=== PATIENT | male | born 1955 | race Caucasian/White ===

== ENCOUNTER → 2017-08-23 06:28 | Outpatient (CLI) | payer OTHER, SELFPAY ==
[2017-08-23 06:47] LABS: Absolute Lymphocyte Count 1.96 X10^3/ul (0.83-4.51); Absolute Neutrophil Count 9.6 X10^3/uL (2.0-7.7); Basophil# 0.05 X10^3/uL; Basophil% 0.4 % (0-1); Eosinophil# 0.54 X10^3/uL; Eosinophils% 4.1 % (0-5); Hematocrit 44.5 % (40-54); Hemoglobin 14.9 g/dl (13.0-16.5); Lymphocyte # 1.96 X10^3/ul (4.0); Mean Corp Hgb Conc 33.5 g/gl (32-36); Mean Corpuscular Hgb 28.3 pg (27.0-32.0); Mean Corpuscular Volume 84.6 fL (80-94); Mean Platelet Vol. 11.1 fl (6.2-12.0); Monocyte# 0.98 X10^3/uL; Monocyte% 7.5 % (0-10); Neutrophil # 9.55 X10^3/uL (2.7-7.7); Neutrophil % 72.8 % (47-70); Platelet Count 206 K/mm3 (150-450); RBC Distribution Width CV 14.6 % (11.6-14.6); RBC Distribution Width SD 44.9 fl (35.1-43.9); Red Blood Count 5.26 M/mm3 (4.6-6.2); White Blood Count 13.1 K/mm3 (4.4-11.0)
[2017-08-23 06:48] LABS: POSITIVE COUNT NO; POSITIVE DIFFERENTIAL NO; POSITIVE MORPHOLOGY NO
[2017-08-23 07:11] LABS: ALB/GLOB Ratio 0.8 RATIO (0.9-2.4); AST(SGOT) 16 U/L (15-37); Alanine Aminotransfer ALT/SGPT 33 U/L (16-61); Albumin, Serum 3.4 g/dL (3.2-5.0); Alkaline Phosphatase 162 U/L (45-117); Anion Gap 9 (5-15); BUN 16 mg/dL (7-18); BUN/Creat Ratio 19.7 RATIO (10-20); Calcium,Total 8.6 mg/dL (8.5-10.1); Chloride 107 mmol/L (98-107); Cholesterol 121 mg/dL (200); Creatinine, Serum 0.81 mg/dL (0.70-1.30); EST Glomerular Filtration Rate 103 mL/min (>60); Est Glom Filt Rate - Afr Amer 125 mL/min (>60); Glucose 98 mg/dL (74-106); High Density Lipoprotein 31 mg/dL; Potassium 3.2 mmol/L (3.5-5.1); Protein, Total 7.4 g/dL (6.4-8.2); Sodium Level 141 mmol/L (136-145); Thyroid Stim Hormone (TSH) 1.62 uIU/mL (0.358-3.74); Triglycerides 211 mg/dL; Very Low Density Lipoprotein 42 mg/dL (5-40)
[2017-08-24 16:34] LABS: Microalbumin,Random Urine < 5.0 mg/L (NO RANGE EST.)
== END ==
PROVIDERS: Family Provider Family Medicine; PCP Family Medicine; Visit Provider Family Medicine
DX: M79.89 Other specified soft tissue disorders (principal); I10 Essential (primary) hypertension
CPT/HCPCS: 80053; 80061; 82043; 82570; 84443; 85025

== ENCOUNTER → 2018-08-12 09:59 | Outpatient (CLI) | payer OTHER, SELFPAY ==
[2018-08-12 09:06] VITALS: BMI 31.8
[2018-08-12 11:06] LABS: Anion Gap 6 (5-15); BUN 14 mg/dL (7-18); BUN/Creat Ratio 17.2 RATIO (10-20); Calcium,Total 8.9 mg/dL (8.5-10.1); Chloride 110 mmol/L (98-107); Creatinine, Serum 0.82 mg/dL (0.70-1.30); EST Glomerular Filtration Rate 102 mL/min (>60); Est Glom Filt Rate - Afr Amer 124 mL/min (>60); Glucose 102 mg/dL (74-106); Potassium 3.8 mmol/L (3.5-5.1); Sodium Level 143 mmol/L (136-145)
== END ==
PROVIDERS: Family Provider Family Medicine; PCP Family Medicine; Referring Provider Nurse Practitioner Family; Visit Provider Nurse Practitioner Family
DX: R07.9 Chest pain, unspecified (principal); I25.10 Atherosclerotic heart disease of native coronary artery without angina pectoris; I10 Essential (primary) hypertension; E78.00 Pure hypercholesterolemia, unspecified; R00.2 Palpitations; Z95.1 Presence of aortocoronary bypass graft
CPT/HCPCS: 36415; 80048; 93225; 93226

== ENCOUNTER → 2019-02-04 16:33 | Outpatient (CLI) | payer OTHER, SELFPAY ==
[2018-08-12 09:06] VITALS: BMI 31.8
[2019-02-04 17:37] LABS: Absolute Lymphocyte Count 2.15 X10^3/uL (0.83-4.51); Absolute Neutrophil Count 9.8 X10^3/uL (2.0-7.7); Basophil# 0.05 X10^3/uL; Basophil% 0.4 % (0-1); Eosinophil# 0.29 X10^3/uL; Eosinophils% 2.2 % (0-5); Hematocrit 45.2 % (40-54); Hemoglobin 14.3 g/dL (13.0-16.5); Lymphocyte # 2.15 X10^3/ul (4.0); Lymphocyte % 16.2 % (19-41); Mean Corp Hgb Conc 31.6 g/dL (32-36); Mean Corpuscular Hgb 27.2 pg (27.0-32.0); Mean Corpuscular Volume 86.1 fL (80-94); Mean Platelet Vol. 11.5 fl (6.2-12.0); Monocyte# 0.88 X10^3/uL; Monocyte% 6.6 % (0-10); NRBC Flagged by Analyzer 0 % (0-5); Neutrophil # 9.82 X10^3/uL (2.7-7.7); Neutrophil % 74.2 % (47-70); Platelet Count 215 K/mm3 (150-450); RBC Distribution Width CV 14.6 % (11.6-14.6); Red Blood Count 5.25 M/mm3 (4.6-6.2); White Blood Count 13.2 K/mm3 (4.4-11.0)
[2019-02-04 18:03] LABS: Anion Gap 5 (5-15); BUN 23 mg/dL (7-18); BUN/Creat Ratio 24.4 RATIO (10-20); Chloride 112 mmol/L (98-107); Cholesterol 140 mg/dL (200); Creatinine, Serum 0.94 mg/dL (0.70-1.30); EST Glomerular Filtration Rate 86 mL/min (>60); Est Glom Filt Rate - Afr Amer 104 mL/min (>60); Glucose 87 mg/dL (74-106); High Density Lipoprotein 31 mg/dL; Sodium Level 144 mmol/L (136-145)
== END ==
PROVIDERS: Family Provider Family Medicine; PCP Family Medicine; Referring Provider Family Medicine; Visit Provider Family Medicine
DX: I10 Essential (primary) hypertension (principal); I89.0 Lymphedema, not elsewhere classified; I25.10 Atherosclerotic heart disease of native coronary artery without angina pectoris
CPT/HCPCS: 36415; 80048; 82465; 83718; 85025

== ENCOUNTER 2019-02-15 16:13 | Outpatient (RCR) | payer OTHER, SELFPAY ==
[2018-08-12 09:06] VITALS: BMI 31.8
--- NOTE | 2019-04-14 12:36 | HP.OTEVAL_ITS ---
Patient's Visit Information MAIRA BAGLEY is a 63 year old M, referred to Occupational Therapy by Kenton Weathers MD, with a diagnosis of edema LE. Date of Evaluation: 02/15/19 Occupational Therapist: Aylin Lopez, DANIELA/Taty, CHT - Subjective Subjective: This 63 year old male was seen for OT eval with dx of LE lymphedema- pt states he has had swelling in his left LE for about three years. Pt states the swelling goes down when he is sleeping, most swelling is at night after working. pt states he has tried to use compression socks but doesn't use them very frequently. pt would like to know what he can do to improve his legs. - Lymphedema (Circumferential Measure) Mid-foot: right 27cm left 28cm Ankle: right 29cm left 30 cm Lower calf: right 30cm left 32 cm Largest calf: right 39cm left 39cm Below knee: right 40cm left 40 cm - Lower Limb Functional Index Lower Extremity Functional Score: 72 - Goals Demonstrate a 20% reduction in edema by d/c: Yes Demonstrate adequate knowledge skin care/prec by 2nd week: Yes Demonstrate adequate knowledge therapeutic exercises by d/c: Yes Select approp compression garment w/donning/care/wear by d/c: Yes Voice need to replace compression garment every 4-6mo by dc: Yes - Rehabilitation General Assessment: PT demo with left LE edmea- pt demo need for skilled OT services to ed. pt on mtg of LE lymphedmea (edema) Today pt was ed. on lymphedema, beneficial ex, skin care and precaustions. Pt aslo ed. on use of compressions socks 15-20mmHg. pt ed. on sizing and different textures of compression socks. pt demo understanding and due to deductable will cont. with home mtg and call if he has questions with compression, edema or skin care. pt agree to poc Rehabilitation Potential: Good - Anticipated Interventions Anticipated Interventions: Education re Diagnosis, Education re Life-long lymphedema Management, Education re Skin Care and Precautions, Education re Self Massage Techniques, Education re Correct Donning Tech,Care&Wearing Sched Comp Garments, Home Program - Visit Plan TEXT: Thank you for the opportunity to evaluate your patient. For Medicare and Medicare HMO plans, please review the plan of care and approve it. It will need to be FAXED BACK to us at [phone] for Medicare purposes. Please let me know if there are questions or concerns regarding this plan of care. Physician Signature: Date:
--- NOTE | 2019-05-12 18:46 | HP.OT.NRP ---
HP - Discharge Summary - Patient Information MAIRA BAGLEY was seen in my office for initial evaluation on 02/15/19. The following Plan of Care was established for this patient: - Anticipated Interventions Anticipated Interventions: Education re Diagnosis, Education re Life-long lymphedema Management, Education re Skin Care and Precautions, Education re Self Massage Techniques, Education re Correct Donning Tech,Care&Wearing Sched Comp Garments, Home Program This patient was last seen in our office 02/15/19. Pertinent comments regarding their Occupational therapy will appear below: PT was seen for OT eval and has not scheduled further apts. Due to time lapse in care pt d/c at this time. At this point I will be discontinuing this patient from occupational therapy. I would be happy to see this patient again in the future if found appropriate by the physician. Thank you! Aylin Lopez, OTR/L, CHT
== END 2019-02-15 19:00 | disposition home or self-care (01) ==
LOC: OT 16:13
PROVIDERS: Family Provider Family Medicine; PCP Family Medicine; Referring Provider Family Medicine; Visit Provider Family Medicine
DX: I89.0 Lymphedema, not elsewhere classified (principal); M79.89 Other specified soft tissue disorders
CPT/HCPCS: 97166; 97530

== ENCOUNTER → 2019-03-16 15:51 | Outpatient (CLI) | payer OTHER, SELFPAY ==
[2018-08-12 09:06] VITALS: BMI 31.8
[2019-03-21 11:29] LABS: H. PYLORI STOOL AG Negative (Negative)
== END ==
PROVIDERS: Family Provider Family Medicine; PCP Family Medicine; Referring Provider Family Medicine; Visit Provider Family Medicine
DX: Z20.09 Contact with and (suspected) exposure to other intestinal infectious diseases (principal)

== ENCOUNTER 2020-12-12 09:17 | Inpatient (IN) | payer OTHER, SELFPAY ==
[2019-08-12 10:13] VITALS: BMI 32.3
[2020-12-12] VITALS (12 sets, daily range): BP systolic 125–163; BP diastolic 80–92; PULSE 77–99; RESP 14–35; TEMP 36.6–37.2; O2SAT 88–94; BMI 29.1; BMI 30.3
--- NOTE | 2020-12-12 09:25 | EKG12_ITS ---
Test Reason : SOB Blood Pressure : / mmHG Vent. Rate : 092 BPM Atrial Rate : 092 BPM P-R Int : 156 ms QRS Dur : 104 ms QT Int : 360 ms P-R-T Axes : 004 -44 -05 degrees QTc Int : 445 ms Normal sinus rhythm Possible Left atrial enlargement Left axis deviation Possible Pulmonary disease pattern Left ventricular hypertrophy Abnormal ECG Confirmed by MAGALY SCHULTZ, SKYLAR ([id number]), sports editor NOLVIA STOKES ([id number]) on 12/14/2020 12:33:33 PM Referred By: ESCOBAR/ZHANG Confirmed By:SKYLAR MCKENZIE MD
--- NOTE | 2020-12-12 09:25 | CT_ITS ---
STUDY: CTA CHEST REASON FOR EXAM: Male, 65 years old. hypoxia RADIATION DOSAGE (If Supplied By Facility): CTDIvol = ( 14.85 ) mGy, DLP = ( 436.16 ) mGycm TECHNIQUE: The examination was performed with the intravenous administration of IV 100mL Isovue-370. Post-processing of the angiographic images was performed, with multiplanar reformation and 3D reconstruction. Individualized dose optimization techniques were used for this CT. COMPARISON: None. FINDINGS: Patchy groundglass appearance seen involving both lung maza consistent with Covid 19. For follow-up. Normal enhancement of the main pulmonary artery and right and left pulmonary arteries. Normal enhancement of the bilateral peripheral pulmonary arteries. There is no demonstrated pulmonary embolism. Normal thoracic aorta and visualized great vessels. There is no demonstrated aortic dissection. Normal heart and pericardium. Normal mediastinum. Normal hilar regions. Normal visualized trachea and bronchi. No evidence of pneumothorax or pleural effusion seen. Normal chest wall structures. Increased. Thoracic kyphosis Normal visualized upper abdomen. CT/CTA Chest W/WO Contrast IMPRESSION: Diffuse groundglass pattern involving both lung maza consistent with known COVID-19 status. No evidence of pulmonary emboli. Electronically Signed: Ashleykristel Helen, at 12:26 EDT Tel , Service support ,
--- NOTE | 2020-12-12 09:26 | EDS_ITS ---
HPI History of Present Illness Chief Complaint: Shortness of Breath Informant: patient Onset/Context/Timing Onset: Days Context: gradual Timing: Continuous Quality: Positive for Dyspnea on exertion and Wheezing Current Severity: Moderate Maximum Severity: Severe Worsened by: Exertion Narrative Narrative: The patient is a 55-year-old male with medical history significant for coronary vascular disease status post CABG, hypertension, hypercholeste rolemia, who presents to the emergency department shortness of breath, fatigue, malaise. Patient was diagnosed Covid positive on the of this month. He states he was started on azithromycin. He states that he feels like he cannot catch his breath and has been generally weak. He denies chest pain. He does admit to intermittent fevers. He states he cannot walk a distance without getting very dyspneic. He states he is also had a difficult time staying hydrated and eating. He denies abdominal pain. He denies any other history of immunosuppression. [facility] Medical History Abnormal CT scan, chest Abnormal stress test Atherosclerotic heart disease of [place] coronary artery without angina pectoris Chest pain Edema Essential hypertension History of echocardiogram Hypertriglyceridemia Other [facility] (current) drug therapy Pure hypercholesterolemia Right inguinal hernia Screen for colon cancer Home Medications amlodipine 10 mg tablet 10 mg PO DAILY #30 tab 08/12/19 [Rx Last Taken Unknown] aspirin 81 mg tablet,delayed release 81 mg PO DAILY #30 tab 08/12/19 [Rx Last Taken Unknown] atorvastatin 40 mg tablet 40 mg PO DAILY #30 tab 08/12/19 [Rx Last Taken Unknown] metoprolol succinate 25 mg tablet,extended release 24 hr 25 mg PO QDAY #30 tab 08/12/19 [Rx Last Taken Unknown] quinapril 10 mg tablet 10 mg PO DAILY #30 tab 08/12/19 [Rx Last Taken Unknown] Allergy/AdvReac Type Severity Reaction Status Date / Time No Known Allergies Allergy Verified 08/12/19 10:13 Family History Mother Lymphoma Father Leukemia Surgical History History of cholecystectomy History of left heart catheterization (LHC) History of right inguinal hernia repair Hx of CABG (~06/04/16) Social History Smoking Status: Never smoker alcohol intake: never substance use type: does not use caffeine: Yes Type: carbonated beverages and tea what type of physical activity do you participate in: none seatbelt use: always do you feel safe at home: Yes ROS ROS ED Constitutional Constitutional ED: Reports chills and fever(s) Eyes Eyes: Denies blurry vision or change in vision ENT ENT ED: Denies ear pain or sore throat Cardiovascular Cardiovascular: Denies chest pain or palpitations Respiratory/Chest Respiratory/Chest: Reports cough, dyspnea and dyspnea on exertion Gastrointestinal Gastrointestinal: Reports nausea Genitourinary Genitourinary ED: Denies dysuria or urinary frequency Musculoskeletal Musculoskeletal: Reports arthralgias Integumentary Denies rash Neurologic Neurologic: Denies headache(s) or paresthesias Psychiatric Psychiatric: Denies anxiety or depression Endocrine Endocrinology: Denies polydipsia or polyuria Allergic/Immunologic Allergic/Immunologic ED: Denies urticaria EXAM Physical Exam Const Vital Signs: 12/12/20 09:18 12/12/20 11:17 Temperature 98.9 F Temperature Source Temporal Pulse Rate 99 87 Respiratory Rate 14 20 H Blood Pressure 142/81 H 163/92 H Blood Pressure Mean 101 115 Pulse Ox 91 89 Oxygen Delivery Method Room Air Nasal Cannula Oxygen Flow Rate (L/min) 4 Positive well nourished and well developed General Appearance ED: well developed HEENT Reports normocephalic, head/scalp atraumatic and moist mucous membranes Eyes PERRL and EOMs intact bilaterally Neck no lymphadenopathy and supple General: Negative for tenderness Chest Wall inspection of chest normal Resp normal respiratory effort Auscultation: diminished lung sounds Cardio regular rate, regular rhythm and no murmurs GI normal to inspection, nondistended, normoactive bowel sounds Palpation: Negative for tender, guarding or rebound tenderness present Back/Spine no CVA tenderness Cervical Spine: Negative for cervical spine tenderness Thoracic Spine / Upper Back: Negative for thoracic spinal tenderness Extremity normal to inspection General Extremety ED: Negative for tenderness Neuro oriented x3 and CN's II-XII intact bilaterally Neuro Narrative: No focal deficits appreciated. Sensorium / Orientation: alert Psych mental status grossly normal Skin no rashes or lesions noted, no wounds and skin turgor normal MDM MDM MDM Narrative Medical decision making narrative: The patient is a 65-year-old male who presents Covid positive with increasing shortness of breath. The patient does have resting tachypnea. He had conversational dyspnea. He had to be transitioned to 4 L of nasal cannula to keep saturations in the mid 90s. EKG was obtained. EKG demonstrates sinus rhythm without evidence of acute ischemia. With the patient's hypoxia, I did obtain CTA. The read is pending, but I do not see evidence of saddle embolism. There is rather significant inflammatory change consistent with Covid. Patient was treated with IV Decadron. Labs were reviewed. Given his hypoxic respiratory failure, the patient will be admitted at this time. He was discussed with the hospitalist. Impression 1. COVID-19 2. Hypoxia requiring supplemental oxygen 3. Hypokalemia Lab Data Attestation: I reviewed the patient's lab results. Labs: Laboratory Results - last 24 hr 12/12/20 12/12/20 12/12/20 09:55 09:55 09:55 WBC 12.6 H RBC 5.76 Hgb 15.4 Hct 47.9 MCV 83.2 MCH 26.7 L MCHC 32.2 RDW Std Deviation 45.4 H RDW Coeff of Hugo 15.0 H Plt Count 156 MPV 11.3 Immature Gran % (Auto) 0.600 Neut % (Auto) 89.9 H Lymph % (Auto) 4.4 L Crawford % (Auto) 4.9 Eos % (Auto) 0.0 Baso % (Auto) 0.2 Absolute Neuts (auto) 11.3 H Absolute Lymphs (auto) 0.55 L Nucleated RBC % 0 Differential Comment COMMENT Sodium 140 Potassium 3.2 L Chloride 105 Carbon Dioxide 25.0 Anion Gap 10 BUN 15 Creatinine 0.88 Estim Creat Clear Calc 74.74 Est GFR (MDRD) Af Amer 112 Est GFR (MDRD) Non-Af 93 BUN/Creatinine Ratio 17.0 Glucose 114 H Lactic Acid Calcium 8.7 Total Bilirubin 1.00 AST 61 H ALT 57 Alkaline Phosphatase 108 Total Protein 7.0 Albumin 2.4 L Globulin 4.6 H Albumin/Globulin Ratio 0.5 L Procalcitonin 0.19 H 12/12/20 10:04 WBC RBC Hgb Hct MCV MCH MCHC RDW Std Deviation RDW Coeff of Hugo Plt Count MPV Immature Gran % (Auto) Neut % (Auto) Lymph % (Auto) Crawford % (Auto) Eos % (Auto) Baso % (Auto) Absolute Neuts (auto) Absolute Lymphs (auto) Nucleated RBC % Differential Comment Sodium Potassium Chloride Carbon Dioxide Anion Gap BUN Creatinine Estim Creat Clear Calc Est GFR (MDRD) Af Amer Est GFR (MDRD) Non-Af BUN/Creatinine Ratio Glucose Lactic Acid 1.8 Calcium Total Bilirubin AST ALT Alkaline Phosphatase Total Protein Albumin Globulin Albumin/Globulin Ratio Procalcitonin Radiography Chest X-Ray - ED: 1 View, Read by ED Physician, Normal, Heart, Bony Structures, Right Infiltrate and Left Infiltrate Discharge Plan Triage Chief Complaint: Shortness of Breath ED Provider: Tom Garcia Dx/Rx/DC Orders Prescriptions: No Action metoprolol succinate 25 mg tablet extended release 24 hr 25 mg PO QDAY Qty: 30 RF: 12 quinapril 10 mg tablet 10 mg PO DAILY Qty: 30 RF: 12 atorvastatin 40 mg tablet 40 mg PO DAILY Qty: 30 RF: 12 amlodipine 10 mg tablet 10 mg PO DAILY Qty: 30 RF: 12 aspirin 81 mg tablet,delayed release (DR/EC) 81 mg PO DAILY Qty: 30 RF: 12 Primary Care Provider: Kenton Weathers
[2020-12-12 10:22] LABS: Absolute Lymphocyte Count 0.55 X10^3/uL (0.83-4.51); Absolute Neutrophil Count 11.3 X10^3/uL (2.0-7.7); Basophil# 0.02 X10^3/uL; Basophil% 0.2 % (0-1); Hematocrit 47.9 % (40-54); Hemoglobin 15.4 g/dL (13.0-16.5); Lymphocyte # 0.55 X10^3/ul (0.83-4.51); Lymphocyte % 4.4 % (19-41); Mean Corp Hgb Conc 32.2 g/dL (32-36); Mean Corpuscular Hgb 26.7 pg (27.0-32.0); Mean Corpuscular Volume 83.2 fL (80-94); Mean Platelet Vol. 11.3 fl (6.2-12.0); Monocyte# 0.62 X10^3/uL; Monocyte% 4.9 % (0-10); NRBC Flagged by Analyzer 0 % (0-5); Neutrophil # 11.31 X10^3/uL (2.7-7.7); Neutrophil % 89.9 % (47-70); POSITIVE DIFFERENTIAL YES; Platelet Count 156 K/mm3 (150-450); RBC Distribution Width SD 45.4 fl (35.1-43.9); Red Blood Count 5.76 M/mm3 (4.6-6.2); White Blood Count 12.6 K/mm3 (4.4-11.0)
[2020-12-12 10:24] LABS: Differential Indicated SCAN CRITERIA MET
[2020-12-12 10:37] LABS: ALB/GLOB Ratio 0.5 RATIO (0.9-2.4); AST(SGOT) 61 U/L (15-37); Alanine Aminotransfer ALT/SGPT 57 U/L (16-61); Albumin, Serum 2.4 g/dL (3.2-5.0); Alkaline Phosphatase 108 U/L (45-117); Anion Gap 10 (5-15); BUN 15 mg/dL (7-18); Calcium,Total 8.7 mg/dL (8.5-10.1); Chloride 105 mmol/L (98-107); Creatinine, Serum 0.88 mg/dL (0.70-1.30); EST Glomerular Filtration Rate 93 mL/min (>60); Est Glom Filt Rate - Afr Amer 112 mL/min (>60); Estimated Creatinine Clearance 74.74 ml/min; Globulin 4.6 g/dL (2.2-4.2); Glucose 114 mg/dL (74-106); Potassium 3.2 mmol/L (3.5-5.1); Sodium Level 140 mmol/L (136-145)
[2020-12-12 10:45] LABS: Lactic Acid 1.8 mmol/L (0.4-1.9)
[2020-12-12 10:51] LABS: Procalcitonin 0.19 ng/mL (0.00-0.09)
--- NOTE | 2020-12-12 11:02 | ED.RN ---
pt 85 percent on room air. placed on [address] jack
[2020-12-12] MEDS: Acetaminophen 500 MG Tablet 1000 MG PO (11:16)
[2020-12-12] MEDS: dexAMETHasone 4 MG/ML Vial 6 MG IV (11:16)
[2020-12-12] MEDS: 0.9% Normal Saline 1,000 ML 125 ML IV (11:16)
--- NOTE | 2020-12-12 11:31 | NURSING ---
DR SIERRA TOBAR
--- NOTE | 2020-12-12 11:37 | NURSING ---
MS2 COVID DR SIERRA CASILLAS, HYPOXIA
--- NOTE | 2020-12-12 11:55 | HP.PCM.HOS_ITS ---
HPI - General HPI Narrative MAIRA ELAM, is a 65 M who presented with a chief complaint of shortness of breath. Mr. Elam tested positive for Covid on 03 December and since then has been experiencing shortness of breath, fatigue, malaise, change in taste and smell, and intermittent mild dry cough. He has a history of coronary disease but no history of immunosuppression. He reports that he is unable to walk very far without getting significantly dyspneic. He denies chest pain, hemoptysis, diarrhea, or nausea and vomiting. He indicates he has had known exposure to coronavirus and has not had his vaccine. Upon arrival to the emergency department his sats were 91% on room air and he is significantly declined since his presentation and is now on 5 L nasal cannula with an SPO2 of 93%. He is tachypneic but his blood pressure is stable and he has no fever. He has a mildly elevated white count but his CBC is otherwise normal. His CMP shows mild hypokalemia, normal renal function, mild AST elevation at 61, and his procalcit onin was 0.19. An EKG was performed and shows poor R wave progression but no acute ST-T wave changes. A CTA was performed and the read is pending on admission but upon my review shows patchy bilateral diffuse groundglass infiltrates. He was treated with IV fluids and Decadron in the emergency dep artment will be admitted to PCU. [facility] Medical History (Updated 12/12/20 @ 12:[address] Angela Ac, ) Abnormal CT scan, chest Abnormal stress test Atherosclerotic heart disease of [place] coronary artery without angina pectoris Chest pain Edema Essential hypertension History of echocardiogram Hypertriglyceridemia Other correction (current) drug therapy Pure hypercholesterolemia Right inguinal hernia Screen for colon cancer Home Medications amlodipine 10 mg tablet 10 mg PO DAILY #30 tab 08/12/19 [Rx Last Taken Unknown] aspirin 81 mg tablet,delayed release 81 mg PO DAILY #30 tab 08/12/19 [Rx Last Taken Unknown] atorvastatin 40 mg tablet 40 mg PO DAILY #30 tab 08/12/19 [Rx Last Taken Unk nown] metoprolol succinate 25 mg tablet,extended release 24 hr 25 mg PO QDAY #30 tab 08/12/19 [Rx Last Taken Unknown] quinapril 10 mg tablet 10 mg PO DAILY #30 tab 08/12/19 [Rx Last Taken Unknown] Allergy/AdvReac Type Severity Reaction Status Date / Time No Known Allergies Allergy Verified 08/12/19 10:13 Family History Mother Lymphoma Father Leukemia Surgical History History of cholecystectomy History of left heart catheterization (LHC) History of right inguinal hernia repair Hx of CABG (~06/04/16) Social History Smoking Status: Never smoker alcohol intake: never substance use type: does not use caffeine: Yes Type: carbonated beverages and tea what type of physical activity do you participate in: none seatbelt use: always do you feel safe at home: Yes ROS Review of Systems ROS Unobtainable: Denies due to encephalopathy, due to endotracheal tube, due to mental condition, due to mental status or other Constitutional Constitutional: Reports anorexia, chills, fatigue, fever(s), malaise and weakness; Denies change in weight or night sweats Eyes Eyes: Denies blurry vision, change in eye color, change in vision, discharge from eye(s), double vision, erythema, eye pain, loss of vision or other ENT HEENT: Denies abnormal hearing, dysphagia, ear pain, epistaxis, headache(s), hearing loss, nasal congestion, nasal discharge, post nasal drip, sinus pressure, sore throat or other Cardiovascular Cardiovascular: Denies chest pain, claudication, dyspnea on exertion, edema, lightheadedness, orthopnea, palpitations, paroxysmal nocturnal dyspnea, rapid heart rate, syncope or other Respiratory/Chest Respiratory/Chest: Reports cough, dyspnea, shortness of breath at rest and shortness of breath with exertion; Denies excessive phlegm production, hemoptysis, productive cough, wheezing or other Gastrointestinal Gastrointestinal: Denies abdominal pain, coffee ground emesis, constipation, diarrhea, dyspepsia, hematemesis, hematochezia, loose stools, melena, nausea, vomiting or other Genitourinary Genitourinary: Denies burning urination, difficulty urinating, dysuria, hematuria, nocturia, urinary frequency, urinary hesitancy, urinary incontinence, urinary urgency or other Musculoskeletal Musculoskeletal: Reports myalgias; Denies arthralgias, back pain, joint pain, joint stiffness, joint swelling, neck pain or other Neurologic Neurologic: Denies abnormal gait, abnormal speech, confusion, disequilibrium, dizziness, focal weakness, headache(s), numbness, paresthesias, seizure-like activity, seizures, syncope, tingling, tremor(s) or other Psychiatric Psychiatric: Denies anxiety, depression, homicidal ideation, suicidal ideation or other Endocrine Endocrinology: Denies change in body appearance, cold intolerance, excessive sweating, heat intolerance, polydipsia, polyuria or other Hematologic/Lymphatic Hematologic/Lymphatic: Denies anemia, easy bleeding, easy bruising, lymphadenopathy or other Allergic/Immunologic Allergic/Immunologic: Denies rhinitis, hives, eczemia, asthma or other Vital Signs Vital Signs Vital Signs: 12/12/20 09:18 12/12/20 11:17 Temperature 98.9 F Temperature Source Temporal Pulse Rate 99 87 Respiratory Rate 14 20 H Blood Pressure 142/81 H 163/92 H Blood Pressure Mean 101 115 Pulse Ox 91 89 Oxygen Delivery Method Room Air Nasal Cannula Oxygen Flow Rate (L/min) 4 Weight Weight: 79.379 kg Body Mass Index (BMI) 29.1 Physical Exam Const alert and oriented x3 Constitutional Narrative: Overweight middle-aged white male lying scrunched down in bed, appears as if he does not feel well, but nontoxic HEENT normocephalic HEENT Narrative: Good dentition, no thrush, Mallampati 2 Mouth: moist mucous membranes abnormal parched Eyes PERRL, EOMs intact bilaterally and conjunctivae normal Neck no lymphadenopathy, supple, no JVD and no carotid bruits Resp No normal respiratory effort, No no retractions, No no use of accessory muscles and No clear to auscultation bilaterally Resp Narrative: Diminished but clear, tachypnea but no accessory muscle use Auscultation: Negative for crackles, rales, rhonchi or wheezes Cardio regular rate, regular rhythm, S1 normal heart sound, S2 normal heart sound, no murmurs, no rub, no gallops, no clicks and no JVD GI normal to inspection, nondistended, normoactive bowel sounds, soft to palpation, non-tender and non-distended Extremity normal to inspection, full ROM and no clubbing, cyanosis or edema Peripheral Pulses: Yes pulses 2+ throughout Skin no rashes or lesions noted, no wounds, skin turgor normal, no jaundice, no petechiae and no mottling Neuro oriented x3, CN's II-XII intact bilaterally, moves all extremities and no focal motor deficits Neuro Narrative: Generalized weakness but no focal deficit Sensorium / Orientation: awake, alert, oriented to person, oriented to place and oriented to time Speech: speech normal Psych affect normal Results Lab / Micro Data Attestation: I reviewed the patient's lab results. Result Diagrams: 12/12/20 09:55 12/12/20 09:55 Labs: Laboratory Results - last 24 hr 12/12/20 12/12/20 12/12/20 09:55 09:55 09:55 WBC 12.6 H RBC 5.76 Hgb 15.4 Hct 47.9 MCV 83.2 MCH 26.7 L MCHC 32.2 RDW Std Deviation 45.4 H RDW Coeff of Hugo 15.0 H Plt Count 156 MPV 11.3 Immature Gran % (Auto) 0.600 Neut % (Auto) 89.9 H Lymph % (Auto) 4.4 L Dukes % (Auto) 4.9 Eos % (Auto) 0.0 Baso % (Auto) 0.2 Absolute Neuts (auto) 11.3 H Absolute Lymphs (auto) 0.55 L Nucleated RBC % 0 Differential Comment COMMENT Sodium 140 Potassium 3.2 L Chloride 105 Carbon Dioxide 25.0 Anion Gap 10 BUN 15 Creatinine 0.88 Estim Creat Clear Calc 74.74 Est GFR (MDRD) Af Amer 112 Est GFR (MDRD) Non-Af 93 BUN/Creatinine Ratio 17.0 Glucose 114 H Lactic Acid Calcium 8.7 Total Bilirubin 1.00 AST 61 H ALT 57 Alkaline Phosphatase 108 Total Protein 7.0 Albumin 2.4 L Globulin 4.6 H Albumin/Globulin Ratio 0.5 L Procalcitonin 0.19 H 12/12/20 10:04 WBC RBC Hgb Hct MCV MCH MCHC RDW Std Deviation RDW Coeff of Hugo Plt Count MPV Immature Gran % (Auto) Neut % (Auto) Lymph % (Auto) Dukes % (Auto) Eos % (Auto) Baso % (Auto) Absolute Neuts (auto) Absolute Lymphs (auto) Nucleated RBC % Differential Comment Sodium Potassium Chloride Carbon Dioxide Anion Gap BUN Creatinine Estim Creat Clear Calc Est GFR (MDRD) Af Amer Est GFR (MDRD) Non-Af BUN/Creatinine Ratio Glucose Lactic Acid 1.8 Calcium Total Bilirubin AST ALT Alkaline Phosphatase Total Protein Albumin Globulin Albumin/Globulin Ratio Procalcitonin Assessment & Plan Assessment/Plan (1) Acute respiratory failure with hypoxia: (2) Pneumonia due to COVID-19 virus: (3) Hypokalemia: (4) Atherosclerotic heart disease of [place] coronary artery without angina pectoris: QUALIFIERS: [place] vs. transplanted heart: [place] heart Qualified Code(s): I25.10 - Atherosclerotic heart disease of [place] coronary artery without angina pectoris (5) Hypertriglyceridemia: (6) Essential hypertension: (7) Pure hypercholesterolemia: PLAN: Acute hypoxic respiratory failure secondary to COVID-19 pneumonia -Positive test on 12/03/2020 with known exposure--> day nine since symptoms started -Unvaccinated -Decadron day of 10 -Remdesivir day 1 of 5 -CTA shows patchy groundglass infiltrates bilaterally and diffusely -No pulmonary embolism identified -Serial labs -We will start with Lovenox 40 mg twice daily for now -Supportive care -Wean oxygen as able--> currently requiring 6 L nasal cannula -Suspect patient may further decompensate and require airVo versus noninvasive ventilation versus intubation -Hold on pulmonary consult for now but if decompensates will consult COVID-19 pneumonia -See above Hypokalemia -40 mEq p.o. potassium -Repeat in a.m. -Check a.m. magnesium level CAD/HTN/HPL -Continue home amlodipine 10 mg daily Continue aspirin 81 mg daily Continue atorvastatin 40 mg daily Continue metoprolol 25 mg daily Continue quinapril 10 mg daily DVT prophylaxis 40 mg Lovenox twice daily -SCDs CODE STATUS -Full code Charges/Coding Visit Charges Inpatient E&M: 18137 Init Hosp L3
--- NOTE | 2020-12-12 12:01 | NURSING ---
DR ESQUIVEL IN ROOM
[2020-12-12] MEDS: Lactated Ringers 1,000 ML 75 ML IV (14:53)
[2020-12-12] MEDS: Enoxaparin 40 MG/0.4 ML Syringe SC (19:55)
[2020-12-13] VITALS (14 sets, daily range): BP systolic 123–135; BP diastolic 80–89; PULSE 63–86; RESP 13–31; TEMP 36.4–36.9; O2SAT 90–99
[2020-12-13] MEDS: Lactated Ringers 1,000 ML 75 ML IV (04:50)
[2020-12-13 05:07] LABS: Absolute Lymphocyte Count 0.73 X10^3/uL (0.83-4.51); Absolute Neutrophil Count 9.2 X10^3/uL (2.0-7.7); Basophil# 0.02 X10^3/uL; Basophil% 0.2 % (0-1); Hematocrit 46.3 % (40-54); Hemoglobin 14.9 g/dL (13.0-16.5); Lymphocyte # 0.73 X10^3/ul (0.83-4.51); Mean Corp Hgb Conc 32.2 g/dL (32-36); Mean Corpuscular Hgb 26.8 pg (27.0-32.0); Mean Corpuscular Volume 83.1 fL (80-94); Mean Platelet Vol. 11.2 fl (6.2-12.0); Monocyte# 0.54 X10^3/uL; Monocyte% 5.1 % (0-10); NRBC Flagged by Analyzer 0 % (0-5); Neutrophil # 9.15 X10^3/uL (2.7-7.7); Neutrophil % 87.2 % (47-70); Platelet Count 197 K/mm3 (150-450); RBC Distribution Width CV 14.8 % (11.6-14.6); RBC Distribution Width SD 44.8 fl (35.1-43.9); Red Blood Count 5.57 M/mm3 (4.6-6.2); White Blood Count 10.5 K/mm3 (4.4-11.0)
[2020-12-13 05:38] LABS: ALB/GLOB Ratio 0.6 RATIO (0.9-2.4); AST(SGOT) 51 U/L (15-37); Alanine Aminotransfer ALT/SGPT 47 U/L (16-61); Albumin, Serum 2.1 g/dL (3.2-5.0); Alkaline Phosphatase 98 U/L (45-117); Anion Gap 9 (5-15); BUN 15 mg/dL (7-18); BUN/Creat Ratio 22.1 RATIO (10-20); Chloride 111 mmol/L (98-107); Creatinine, Serum 0.68 mg/dL (0.70-1.30); EST Glomerular Filtration Rate 125 mL/min (>60); Est Glom Filt Rate - Afr Amer 151 mL/min (>60); Estimated Creatinine Clearance 96.72 ml/min; Globulin 3.3 g/dL (2.2-4.2); Glucose 120 mg/dL (74-106); Magnesium 2.1 mg/dL (1.6-2.6); Phosphorus 3.7 mg/dL (2.5-4.9); Potassium 3.6 mmol/L (3.5-5.1); Protein, Total 5.4 g/dL (6.4-8.2); Sodium Level 144 mmol/L (136-145)
[2020-12-13] MEDS: dexAMETHasone 4 MG Tablet 6 MG PO (09:16)
[2020-12-13] MEDS: Aspirin E.C. 81 MG Tablet PO (09:17)
[2020-12-13] MEDS: amLODIPine 10 MG Tablet PO (09:17)
[2020-12-13] MEDS: Lisinopril 10 MG Tablet PO (09:17)
[2020-12-13] MEDS: Metoprolol(XL)Succ 25 MG Tablet PO (09:17)
[2020-12-13] MEDS: Enoxaparin 40 MG/0.4 ML Syringe SC ×2 (09:17→21:45)
--- NOTE | 2020-12-13 14:40 | CASEMGMT ---
SANYA PALACIOS assessment: Face to Face with patient for initial transition planning/care coordination assessment. RN PHILIP introduced self and role at [facility], pt voices understanding and consents to assessment. Pt is sitting up in chair in no distress on 5L nc. Pt is A/Ox4 and answers all questions appropriately. Pt states was on vacation when became sx with COVID and family/friends notified. Pt states no concerns getting supplies once home. Care providers, pharmacy, and demographics verified. Presentation: SOB, COVID +, sx's for 9 days Admitting dx: COVID pna PCP: Kenton Weathers Specialists: Jared cardio Preferred Pharmacy: [facility] Insurance: MMO Prescription Benefit: MMO Living Will/HPOA: Pt states does not have LW/HPOA and declines AD info. LNOK: Cholo Elam, son Living Arrangements: Pt states lives in mobile home with son with a couple steps in and states no concerns at home. Pt states is independent with ADL's. Transportation: Pt states drives self and states no transportation concerns. DME/HHC: Pt states has a BP cuff at home and states no further DME. Pt states no preference for DME company if he qualifies for home oxygen at discharge. Pt states no hx of HHC or SNF. Pt states no concerns with going home at time of discharge. 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 Pt states does not smoke cigarettes or drink ETOH. Pt states no further concerns/needs. CM to follow for home oxygen testing and any further discharge planning/needs. Advised pt to ask for CM if any further questions/concerns/needs arise, voices understanding. Pt Goal: Home Plan: Home, pending home oxygen testing. [place] SANYA PALACIOS
--- NOTE | 2020-12-13 15:06 | PCM.PN.HOSP ---
Subjective Subjective Patient states that he is feeling better today. Denies any acute shortness of breath. Gets slightly winded with exertion but no shortness of breath with rest. Had been requiring 7 L of oxygen as of yesterday afternoon but now has been weaned to 4 L. Objective Data Objective Data Vital Signs: Vital Signs Temp Pulse Resp BP Pulse Ox 97.8 F 86 24 H 128/86 H 97 12/13/20 09:12 12/13/20 09:17 12/13/20 09:12 12/13/20 09:12 12/13/20 09:12 Oxygen Flow Rate (L/min) 5 Oxygen Delivery Method Nasal Cannula Weight: 82.7 kg Body Mass Index (BMI) 30.3 Intake & Output: Intake and Output for Last 24 Hours 12/11/20 12/12/20 12/13/20 23:59 23:59 23:59 Intake Total 1317.92 / 1517.92 2100 / 2100 Output Total 900 / 900 625 / 625 Balance 417.92 / 617.92 1475 / 1475 Lab / Micro Data Result Diagrams: 12/13/20 04:54 12/13/20 04:54 Labs: Laboratory Results - last 24 hr 12/13/20 12/13/20 04:54 04:54 WBC 10.5 RBC 5.57 Hgb 14.9 Hct 46.3 MCV 83.1 MCH 26.8 L MCHC 32.2 RDW Std Deviation 44.8 H RDW Coeff of Hugo 14.8 H Plt Count 197 MPV 11.2 Immature Gran % (Auto) 0.500 Neut % (Auto) 87.2 H Lymph % (Auto) 7.0 L Kendall % (Auto) 5.1 Eos % (Auto) 0.0 Baso % (Auto) 0.2 Absolute Neuts (auto) 9.2 H Absolute Lymphs (auto) 0.73 L Nucleated RBC % 0 Sodium 144 Potassium 3.6 Chloride 111 H Carbon Dioxide 24.0 Anion Gap 9 BUN 15 Creatinine 0.68 L Estim Creat Clear Calc 96.72 Est GFR (MDRD) Af Amer 151 Est GFR (MDRD) Non-Af 125 BUN/Creatinine Ratio 22.1 H Glucose 120 H Calcium 8.0 L Phosphorus 3.7 Magnesium 2.1 Total Bilirubin 0.60 AST 51 H ALT 47 Alkaline Phosphatase 98 Total Protein 5.4 L Albumin 2.1 L Globulin 3.3 Albumin/Globulin Ratio 0.6 L Physical Exam Const alert, oriented x3, no apparent distress, healthy appearing and well nourished Constitutional Narrative: Upper middle-aged white male, sitting up in a chair, watching television and appears comfortable, no respiratory distress HEENT head/scalp atraumatic HEENT Narrative: No thrush Head and Scalp: normocephalic Resp normal respiratory effort, no retractions and no use of accessory muscles Resp Narrative: Diffusely diminished but clear Auscultation: Negative for crackles, rales, rhonchi or wheezes Cardio regular rate, regular rhythm, S1 normal heart sound, S2 normal heart sound, no murmurs, no rub, no gallops, no clicks and no JVD GI normal to inspection, nondistended, normoactive bowel sounds, soft to palpation, non-tender and non-distended Extremity normal to inspection and no clubbing, cyanosis or edema Neuro oriented x3, CN's II-XII intact bilaterally and moves all extremities Sensorium / Orientation: awake, alert, oriented to person, oriented to place and oriented to time Speech: speech normal Assessment & Plan Assessment/Plan (1) Acute respiratory failure with hypoxia: (2) Pneumonia due to COVID-19 virus: (3) Hypokalemia: PLAN: Acute hypoxic respiratory failure secondary to COVID-19 pneumonia -Positive test on 12/03/2020 with known exposure--> day nine since symptoms started -Unvaccinated -Decadron day 2 of 10 -Remdesivir day 2 of 5 -CTA shows patchy groundglass infiltrates bilaterally and diffusely -No pulmonary embolism identified -Lovenox 40 mg twice daily -Supportive care -Patient has been weaned from 7 L to now 3 L throughout the day -If patient remains stable we will consider discharge tomorrow with home oxygen COVID-19 pneumonia -See above Hypokalemia - resolved CAD/HTN/HPL -Continue home amlodipine 10 mg daily Continue aspirin 81 mg daily Continue atorvastatin 40 mg daily Continue metoprolol 25 mg daily Continue quinapril 10 mg daily DVT prophylaxis 40 mg Lovenox twice daily -SCDs CODE STATUS -Full code Charges/Coding Visit Charges Inpatient E&M: 57669 Subs Hosp L2
[2020-12-13] MEDS: 0.9% Saline Lock 10 ML Syringe IV (21:45)
[2020-12-14] VITALS (9 sets, daily range): BP systolic 105–131; BP diastolic 71–79; PULSE 60–79; RESP 16–21; TEMP 36.4–36.9; O2SAT 93–96
[2020-12-14] MEDS: Metoprolol(XL)Succ 25 MG Tablet PO (09:02)
[2020-12-14] MEDS: amLODIPine 10 MG Tablet PO (09:02)
[2020-12-14] MEDS: Lisinopril 10 MG Tablet PO (09:02)
[2020-12-14] MEDS: Aspirin E.C. 81 MG Tablet PO (09:02)
[2020-12-14] MEDS: Enoxaparin 40 MG/0.4 ML Syringe SC (09:02)
[2020-12-14] MEDS: dexAMETHasone 4 MG Tablet 6 MG PO (09:02)
[2020-12-14] MEDS: 0.9% Saline Lock 10 ML Syringe IV (09:04)
--- NOTE | 2020-12-14 09:50 | CASEMGMT ---
Pt states had positive COVID test at [facility], but is unsure of date. Sanaz SEGUNDO CM
--- NOTE | 2020-12-14 10:02 | CASEMGMT ---
Pt did not qualify for home oxygen at discharge and states no further concerns with going home at this time. Pt awaiting discharge. Sanaz SEGUNDO CM
--- NOTE | 2020-12-14 10:46 | PCM.DC.SUM ---
Providers Date of Admission: 12/12/20 Primary Care Physician: Dr. Kenton Weathers MD Reason For Visit: COVID19 PNEUMONIA Diagnosis Discharge Diagnosis (1) Acute respiratory failure with hypoxia: Status: Acute Code(s): J96.01 - Acute respiratory failure with hypoxia (2) Pneumonia due to COVID-19 virus: Status: Acute Code(s): U07.1 - COVID-19; J12.82 - Pneumonia due to coronavirus disease 2019 (3) Hypokalemia: Status: Acute Code(s): E87.6 - Hypokalemia Medications at Discharge Home Medications amlodipine 10 mg tablet 10 mg PO DAILY #30 tab 08/12/19 metoprolol succinate 25 mg tablet,extended release 24 hr 25 mg PO QDAY #30 tab 08/12/19 quinapril 10 mg tablet 10 mg PO DAILY #30 tab 08/12/19 dexamethasone 6 mg PO DAILY #6 tab 12/14/20 Hospital Course Operations None Procedures - (CTA chest) Summary of Care Provided Minutes Spent on Discharge: 16 Hospital Course: MAIRA ELAM is a 65 M who presented with a chief complaint of shortness of breath. Mr. Elam tested positive for Covid on 03 December and since then had been experiencing shortness of breath, fatigue, malaise, change in taste and smell, and intermittent mild dry cough. He has a history of coronary disease but no history of immunosuppression. He reported that he was unable to walk very far without getting significantly dyspneic. He denied chest pain, hemoptysis, diarrhea, or nausea and vomiting. He indicated he has had known exposure to coronavirus and had not had his vaccine. Upon arrival to the emergency department his sats were 91% on room air and he is significantly declined since his presentation and upon admission was ultimately on 5 L nasal cannula with an SPO2 of 93%. He was tachypneic but his blood pressure was stable and he had no fever. He had a mildly elevated white count but his CBC was otherwise normal. His CMP showed mild hypokalemia, normal renal function, mild AST elevation at 61, and his procalcitonin was 0.19. An EKG was performed and showed poor R wave progression but no acute ST-T wave changes. A CTA was performed on admission and showed patchy bilateral groundglass infiltrates diffusely but no pulmonary embolism. He was treated with IV fluids and Decadron in the emergency department will be admitted to PCU. Given he was still in the window for remdesivir use he was dosed with remdesivir x3 doses and he was maintained on Decadron during his hospitalization. His oxygen requirements peaked at 7 L/min but upon reassessing him on room air at rest and with exertion his oxygen saturations were 93% with exertion and 95% at rest and he therefore does not qualify or need home oxygen. He was discharged in stable condition on 12/14/2020. He was given a prescription for 6 more days of Decadron to complete a 10-day course and he was instructed to quarantine until December 23, 2020 for 21 days of quarantine given the fact that he had severe Covid. I recommended he have the vaccine after he is out of isolation and to follow-up with his PCP as needed. Physical Exam Const alert, oriented x3 and no apparent distress Constitutional Narrative: Overweight middle-aged white male sitting up in bed, appears comfortable, nontoxic General Appearance: cooperative and comfortable HEENT normocephalic and head/scalp atraumatic HEENT Narrative: No thrush, moist mucous membranes Resp normal respiratory effort, no retractions and no use of accessory muscles Resp Narrative: Diminished but clear Cardio regular rate, regular rhythm, S1 normal heart sound, S2 normal heart sound, no murmurs, no rub, no gallops, no clicks and no JVD GI normal to inspection, nondistended, normoactive bowel sounds, soft to palpation, non-tender and non-distended Extremity normal to inspection and no clubbing, cyanosis or edema Neuro oriented x3, CN's II-XII intact bilaterally, moves all extremities and no sensory deficits noted Sensorium / Orientation: awake and alert Speech: speech normal Psych affect normal Weight / BMI Weight Weight: 82.7 kg Body Mass Index (BMI) 30.3 ABG / Lab / Microbiology Data Result Diagrams: 12/13/20 04:54 12/13/20 04:54 Microbiology: Microbiology 12/12/20 10:04 Blood Culture - Preliminary Blood Culture (Wb) - Right Hand No growth in 48 hours. 12/12/20 09:55 Blood Culture - Preliminary Blood Culture (Wb) - Left Hand No growth in 48 hours. Microbiology 12/12/20 10:04 Blood Culture (Wb) - Right Hand Blood Culture - Preliminary No growth in 48 hours. 12/12/20 09:55 Blood Culture (Wb) - Left Hand Blood Culture - Preliminary No growth in 48 hours. D/C Instructions Discharge Diet: No restrictions Discharge Activity: Return to Normal Activity (Quarantine until December 23, 2020) Return to work on: 12/24/20 Meaningful Use Info Meaningful Use Diagnoses (Choose all that apply): None applicable Discharge Plan Admission Admit Date/Time: 12/12/20 11:53 Primary Reason for Your Visit: COVID-19 PNA Attending Provider: Angela Ac Primary Care Provider: Kenton Weathers Instructions Patient Instructions: ED Chest Pain, Noncardiac Additional Instructions / Restrictions: Quarantine for total of 21 days since diagnosis--> December 23, 2020 Recommend obtaining vaccination after quarantine is completed Discharge Orders/Prescriptions Prescriptions: New dexamethasone 4 mg Tablet 6 mg PO DAILY Qty: 6 RF: 0 Continued metoprolol succinate 25 mg tablet extended release 24 hr 25 mg PO QDAY Qty: 30 RF: 12 quinapril 10 mg tablet 10 mg PO DAILY Qty: 30 RF: 12 amlodipine 10 mg tablet 10 mg PO DAILY Qty: 30 RF: 12 Referrals / Follow Up: Kenton Weathers MD [Primary Care Provider] - See Referral Note (As needed) Disposition Disposition (needs filled in before D/C Order can be placed): Home, Self Care Charges/Coding Visit Charges Inpatient E&M: 99028 Disch Hosp
--- NOTE | 2020-12-14 11:43 | PHA.DC.MR ---
Pharmacy Service has performed discharge medication reconciliation for this patient. Home Medications amlodipine 10 mg tablet 10 mg PO DAILY #30 tab 08/12/19 metoprolol succinate 25 mg tablet,extended release 24 hr 25 mg PO QDAY #30 tab 08/12/19 quinapril 10 mg tablet 10 mg PO DAILY #30 tab 08/12/19 dexamethasone 6 mg PO DAILY #6 tab 12/14/20 The patient's discharge medication list was reviewed for discrepancies and discrepancies were resolved.
--- NOTE | 2020-12-14 12:08 | PCM.DC ---
Discharge Instructions Diet Discharge Diet: No restrictions Activity Return to work on:: 12/24/20 Follow Up Care Test Results: Test results from this visit will be discussed in further detail at your follow-up appointment, if applicable. Discharge Plan Admission Admit Date/Time: 12/12/20 11:53 Primary Reason for Your Visit: COVID-19 PNA Attending Provider: Angela Ac Primary Care Provider: Kenton Weathers Instructions Patient Instructions: ED Chest Pain, Noncardiac Additional Instructions / Restrictions: Quarantine for total of 21 days since diagnosis--> December 23, 2020 Recommend obtaining vaccination after quarantine is completed Discharge Orders/Prescriptions Prescriptions: New dexamethasone 4 mg Tablet 6 mg PO DAILY Qty: 6 RF: 0 Continued metoprolol succinate 25 mg tablet extended release 24 hr 25 mg PO QDAY Qty: 30 RF: 12 quinapril 10 mg tablet 10 mg PO DAILY Qty: 30 RF: 12 amlodipine 10 mg tablet 10 mg PO DAILY Qty: 30 RF: 12 Referrals / Follow Up: Kenton Weathers MD [Primary Care Provider] - See Referral Note (As needed) Disposition Disposition (needs filled in before D/C Order can be placed): Home, Self Care
== END 2020-12-14 12:44 | disposition home or self-care (01) | DRG 177 ==
LOC: ED 11:30 → PCU 12:19
PROVIDERS: Admitting Provider Internal Medicine; Emergency Provider Emergency Medicine; PCP Family Medicine; Visit Provider Internal Medicine
DX: U07.1 COVID-19 (principal); J96.01 Acute respiratory failure with hypoxia; J12.82 Pneumonia due to coronavirus disease 2019; E87.6 Hypokalemia; I25.10 Atherosclerotic heart disease of native coronary artery without angina pectoris; I10 Essential (primary) hypertension; E78.00 Pure hypercholesterolemia, unspecified; E78.1 Pure hyperglyceridemia; E66.3 Overweight; Z68.30 Body mass index [BMI] 30.0-30.9, adult; Z79.899 Other long term (current) drug therapy; Z95.1 Presence of aortocoronary bypass graft
CPT/HCPCS: 36415; 71275; 80053; 83605; 83735; 84100; 84145; 85025; 87040; 93005; 99251; 99284; J7030; J7050; J7120; Q9967; A4216; G0463

== ENCOUNTER → 2020-12-29 09:19 | Outpatient (CLI) | payer OTHER, SELFPAY ==
[2020-12-12 13:11] VITALS: BMI 30.3
[2020-12-29 12:43] LABS: Cholesterol 209 mg/dL (200); High Density Lipoprotein 32 mg/dL; PSA,Total- Diagnostic 7.26 ng/mL (0.0-4.0); Triglycerides 361 mg/dL; Very Low Density Lipoprotein 72 mg/dL (5-40)
[2020-12-29 13:16] LABS: Microalbumin:Creatinine Ratio 8.1 mg/g CRE (<30 mg/g CRE)
== END ==
PROVIDERS: PCP Family Medicine; Visit Provider Family Medicine
DX: I25.10 Atherosclerotic heart disease of native coronary artery without angina pectoris (principal); I10 Essential (primary) hypertension; Z12.5 Encounter for screening for malignant neoplasm of prostate
CPT/HCPCS: 36415; 80061; 82043; 82570; 84153

== ENCOUNTER 2021-01-19 00:26 | Emergency (ER) | payer OTHER, SELFPAY ==
[2020-12-12 13:11] VITALS: BMI 30.3
[2021-01-19 00:27] VITALS: BP 188/100; PULSE 71; RESP 18; TEMP 36.1; O2SAT 100; BMI 29.9
[2021-01-19 00:39] VITALS: BP 176/106; PULSE 77; RESP 16; O2SAT 99
--- NOTE | 2021-01-19 00:45 | RAD_ITS ---
STUDY: X-RAY CHEST REASON FOR EXAM: Male, 65 years old. chest pain TECHNIQUE: Single AP portable view of the chest. COMPARISON: 03/20/2016. FINDINGS: The lungs are clear and expanded. There is no demonstrated pleural abnormality. Sternal cerclage wires are present from a prior sternotomy. Normal mediastinum and anthony. Normal visualized pulmonary arteries. There is atherosclerotic calcification of the aortic arch with tortuosity. There are diffuse degenerative changes of the visualized thoracic spine. There is degenerative osteoarthritis of the bilateral shoulders. There is no demonstrated abnormality of the visualized soft tissue structures of the upper abdomen. RAD/Chest 1 View (Portable) IMPRESSION: No acute cardiopulmonary disease, stable study. Electronically Signed: Chrissie Faria MD at 1:36 EDT , Service support ,
--- NOTE | 2021-01-19 00:45 | EKG12_ITS ---
Test Reason : CP/ARM PAIN Blood Pressure : / mmHG Vent. Rate : 075 BPM Atrial Rate : 075 BPM P-R Int : 158 ms QRS Dur : 114 ms QT Int : 428 ms P-R-T Axes : 017 -30 017 degrees QTc Int : 477 ms Normal sinus rhythm Left axis deviation Abnormal ECG Confirmed by HOWARD SCHULTZ, [place] ([id number]), health editor NOLVIA STOKES ([id number]) on 01/22/2021 10:37:59 AM Referred By: BB Confirmed By:DANIA LAWRENCE MD
--- NOTE | 2021-01-19 00:45 | EX.ED.UPPERE ---
HPI History of Present Illness Chief Complaint: Upper Extremity Injury Detail of Chief Complaint: left arm pain Informant: patient Onset/Context/Timing Onset: Weeks (2-3) Timing: Intermittent and Lasts (sometimes couple minutes, other times an hr or so) Quality of Pain: Aching Location: left upper arm Current Severity: Gone Maximum Severity: Moderate Worsened by: nothing in particular; seems random Relieved by: nothing in particular Associated Symptoms Associated Symptoms: Negative for Parasthesia, Weakness and Loss of Funtion Narrative Narrative: Patient has a history of heart disease, he had an abnormal stress test that led to a cath that led to a CABG for 5 years ago. He follows with local cardiology but admits that he has not seen him in a long time and does not go regularly and additionally, does not take aspirin, although he took 650 mg less than 24 hours ago. He has been having intermittent chest pain for over a year, mostly on the left side, goes away when he burps or belches. He has been having unexplained left upper extremity discomfort off-and-on for the last couple weeks. It has not necessarily been associated with chest discomfort. Tonight, however he had both together and decided to check his blood pressure and it was around 175/98 which is the main reason he decided to come to the emergency department for this at 12:30 AM. He states the symptoms are all gone right now. He states he had Covid this past November, a month ago or so, he states he had it mild and fully recovered from that without residual symptoms. He has never been vaccinated for it. [facility] Medical History (Updated 01/19/21 @ 01:[address] Jesus Manuel Pepper MD) Abnormal CT scan, chest Abnormal stress test Atherosclerotic heart disease of [place] coronary artery without angina pectoris Chest pain Edema Essential hypertension History of echocardiogram Hypertriglyceridemia Other [facility] (current[facility] drug therapy Pure hypercholesterolemia Right inguinal hernia Screen for colon cancer Home Medications amlodipine 10 mg tablet 10 mg PO DAILY #30 tab 08/12/19 [Rx Last Taken Unknown] metoprolol succinate 25 mg tablet,extended release 24 hr 25 mg PO QDAY #30 tab 08/12/19 [Rx Last Taken Unknown] quinapril 10 mg tablet 10 mg PO DAILY #30 tab 08/12/19 [Rx Last Taken Unknown] dexamethasone 6 mg PO DAILY #6 tab 12/14/20 [Rx Last Taken Unknown] Allergy/AdvReac Type Severity Reaction Status Date / Time No Known Allergies Allergy Verified 01/19/21 00:29 Family History Mother Lymphoma Father Leukemia Surgical History History of cholecystectomy History of left heart catheterization (LHC) History of right inguinal hernia repair Hx of CABG (~06/04/16) Social History Smoking Status: Never smoker alcohol intake: never substance use type: does not use caffeine: Yes Type: carbonated beverages and tea what type of physical activity do you participate in: none seatbelt use: always do you feel safe at home: Yes ROS ROS ED Constitutional Constitutional ED: Denies chills or fever(s) Eyes Eyes: Denies change in vision or diplopia ENT ENT ED: Denies rhinorrhea or sore throat Cardiovascular Cardiovascular: Reports chest pain, edema, palpitations and other Details: Patient frequently has palpitations that are no different in the past several weeks; feels like a brief pause and then a skipped with no associated lightheadedness, has been present chronically. States he had a monitor at home for it at one point remotely. Respiratory/Chest Respiratory/Chest: Denies cough or dyspnea Gastrointestinal Gastrointestinal: Denies abdominal pain, diarrhea, nausea or vomiting Genitourinary Genitourinary ED: Denies dysuria or hematuria Musculoskeletal Musculoskeletal: Reports as per HPI and extremity pain; Denies back pain or neck pain Integumentary Denies abscess or rash Neurologic Neurologic: Denies headache(s), paresthesias or weakness Psychiatric Psychiatric: Denies anxiety or suicidal thoughts EXAM Physical Exam Const Vital Signs: 01/19/21 00:27 01/19/21 00:39 Temperature 96.9 F L Temperature Source Temporal Pulse Rate 71 77 Respiratory Rate 18 16 Blood Pressure 188/100 H 176/106 H Blood Pressure Mean 129 129 Pulse Ox 100 99 Oxygen Delivery Method Room Air Room Air Positive well nourished and well developed General Appearance ED: well developed and NAD HEENT Reports moist mucous membranes normocephalic and atraumatic Eyes PERRL and EOMs intact bilaterally Neck full ROM and supple Resp normal respiratory effort and clear to auscultation bilaterally Cardio regular rate, regular rhythm and no murmurs Rate: Negative for bradycardia or tachycardic GI non-tender and non-distended Auscultation: normoactive bowel sounds Palpation: soft Back/Spine no CVA tenderness General Back: other FROM Extremity normal to inspection General Extremety ED: Yes edema; Negative for pulses abnormal or tenderness General Extremity: edema bilateral lower extremity Details: trace; Negative for pulses abnormal Neuro oriented x3, CN's II-XII intact bilaterally and no sensory deficits noted Sensorium / Orientation: awake and alert Motor Exam: strength 5/5 throughout Skin no rashes or lesions noted and no wounds MDM MDM MDM Narrative Medical decision making narrative: At this time patient is asymptomatic, his blood pressure is similar to what it was at home, currently 188/100, and certainly his symptoms are concerning, although they have been an issue for at least 3 weeks. His heart score is 1, 1, 1, 2, 0 = 5. His work-up is negative and he had no recurrent symptoms, and on recheck without treatment his blood pressure is 133/87, so he does not need any acute treatment for that. I discussed with the on-call delivery room supervisor Dr. Guzman; he recommends discharge home, agrees with recommending that the patient take his aspirin daily, and for outpatient follow-up for probable stress testing and agrees that the symptoms are concerning but we do not need to admit him at this time. Patient is asymptomatic on reevaluation does not want to be admitted, and is comfortable with that plan. Lab Data Attestation: I reviewed the patient's lab results. EKG Initial EKG: Attestation: I personally reviewed and interpreted this EKG as follows: Interpretation: Sinus Rhythm, No Acute Injury Pattern and LAFB Prior EKG tracings: available for review (12/12/20) Prior: Unchanged Discharge Plan Triage Chief Complaint: Upper Extremity Injury ED Provider: Jesus Manuel Pepper Dx/Rx/DC Orders Clinical Impression: Intermittent chest pain Instructions: ED Chest Pain, Uncertain Cause Prescriptions: No Action metoprolol succinate 25 mg tablet extended release 24 hr 25 mg PO QDAY Qty: 30 RF: 12 quinapril 10 mg tablet 10 mg PO DAILY Qty: 30 RF: 12 amlodipine 10 mg tablet 10 mg PO DAILY Qty: 30 RF: 12 dexamethasone 4 mg Tablet 6 mg PO DAILY Qty: 6 RF: 0 Primary Care Provider: Kenton Weathers Referrals: Kenton Weathers MD [Primary Care Provider] - Yonathan Coleman MD [STAFF PHYSICIAN] - As soon as possible Activity Restrictions/Additional Instructions: Make sure and take aspirin 81 mg once daily. Disposition Disposition: Home, Self Care
[2021-01-19 00:58] VITALS: O2SAT 99
[2021-01-19 00:59] LABS: Absolute Lymphocyte Count 2.25 X10^3/uL (0.83-4.51); Absolute Neutrophil Count 9.9 X10^3/uL (2.0-7.7); Basophil# 0.07 X10^3/uL; Basophil% 0.5 % (0-1); Eosinophil# 0.18 X10^3/uL; Eosinophils% 1.3 % (0-5); Hematocrit 45.2 % (40-54); Hemoglobin 14.4 g/dL (13.0-16.5); Lymphocyte # 2.25 X10^3/ul (0.83-4.51); Lymphocyte % 16.8 % (19-41); Mean Corp Hgb Conc 31.9 g/dL (32-36); Mean Corpuscular Hgb 27.3 pg (27.0-32.0); Mean Corpuscular Volume 85.8 fL (80-94); Mean Platelet Vol. 11.3 fl (6.2-12.0); Monocyte# 0.91 X10^3/uL; Monocyte% 6.8 % (0-10); NRBC Flagged by Analyzer 0 % (0-5); Neutrophil # 9.88 X10^3/uL (2.7-7.7); Neutrophil % 74.1 % (47-70); Platelet Count 219 K/mm3 (150-450); RBC Distribution Width CV 16.4 % (11.6-14.6); RBC Distribution Width SD 50.4 fl (35.1-43.9); Red Blood Count 5.27 M/mm3 (4.6-6.2); White Blood Count 13.4 K/mm3 (4.4-11.0)
[2021-01-19 01:18] LABS: Anion Gap 7 (5-15); BUN 21 mg/dL (7-18); BUN/Creat Ratio 26.2 RATIO (10-20); Calcium,Total 9.1 mg/dL (8.5-10.1); Chloride 110 mmol/L (98-107); EST Glomerular Filtration Rate 104 mL/min (>60); Est Glom Filt Rate - Afr Amer 126 mL/min (>60); Estimated Creatinine Clearance 82.21 ml/min; Glucose 101 mg/dL (74-106); Potassium 4.5 mmol/L (3.5-5.1); Sodium Level 141 mmol/L (136-145); Troponin-I HS 6.8 pg/mL (3.0-78.5)
[2021-01-19 01:50] VITALS: BP 133/67; PULSE 73; RESP 16; O2SAT 96
== END 2021-01-19 02:00 | disposition home or self-care (01) ==
LOC: ED 01:49
PROVIDERS: Emergency Provider Emergency Medicine; PCP Family Medicine
DX: R07.89 Other chest pain (principal); I25.10 Atherosclerotic heart disease of native coronary artery without angina pectoris; I10 Essential (primary) hypertension; E78.1 Pure hyperglyceridemia; Z79.52 Long term (current) use of systemic steroids; Z79.899 Other long term (current) drug therapy; Z86.16 Personal history of COVID-19; Z95.1 Presence of aortocoronary bypass graft
CPT/HCPCS: 71045; 80048; 84484; 85025; 93005; 99284; A4216

== ENCOUNTER → 2021-01-23 16:05 | Outpatient (CLI) | payer OTHER, SELFPAY ==
[2021-01-19 00:27] VITALS: BMI 29.9
[2021-01-23 17:46] LABS: PSA,Total- Diagnostic 4.52 ng/mL (0.0-4.0)
== END ==
PROVIDERS: PCP Family Medicine; Visit Provider Nurse Practitioner Adult Health
DX: R97.20 Elevated prostate specific antigen [PSA] (principal)
CPT/HCPCS: 36415; 84153

== ENCOUNTER → 2021-02-05 15:46 | Outpatient (CLI) | payer OTHER, SELFPAY ==
[2021-01-19 00:27] VITALS: BMI 29.9
[2021-01-26 14:22] VITALS: BMI 29.9
--- NOTE | 2021-02-05 16:08 | CT_ITS ---
STUDY: CT ABDOMEN AND PELVIS WITH AND WITHOUT CONTRAST REASON FOR EXAM: Male, 65 years old. GROSS Hematuria, ho URINARY CALCULI RADIATION DOSAGE (If Supplied By Facility): CTDIvol = ( 17.58 ) mGy, DLP = ( 1880.13 ) mGycm TECHNIQUE: Transaxial images were obtained from the dome of the diaphragm to the symphysis pubis without oral contrast. IV 100mL Isovue-300 was administered. Sagittal and coronal images were reconstructed. Individualized dose optimization techniques were used for this CT. COMPARISON: Comparison is made with prior study 04/16/2017. FINDINGS: The visualized lung bases are unremarkable. Stable 7.5 cm x 2.2 cm lipoma in the right lateral chest wall. The visualized portions of the heart are within normal limits. There is decreased attenuation of the liver consistent with steatosis. There are surgical clips in the gallbladder fossa consistent with a prior cholecystectomy. Normal spleen. Normal pancreas. Normal bilateral adrenal glands. Normal right kidney. Normal left kidney. Normal visualized stomach. Normal small intestine. There are multiple colonic diverticula consistent with diverticulosis. The appendix is visualized and appears normal. There is scattered atherosclerotic calcification of the abdominal aorta, without a demonstrated aneurysm. Normal inferior vena cava. Normal retroperitoneum. Normal urinary bladder. There is enlargement of the prostate gland. The prostate measures 4.5 cm x 4.2 cm. The prostate causes indentation of the bladder base. There is a small umbilical hernia containing fat. Normal osseous structures. CT/CT Abd/Pelvis W/WO Contrast IMPRESSION: Fatty infiltration of the liver. Prostatic enlargement with indentation of the bladder base. Electronically Signed: Hossein Modi MD at 8:51 EDT , Service support ,
== END ==
PROVIDERS: PCP Family Medicine; Referring Provider Nurse Practitioner Adult Health; Visit Provider Nurse Practitioner Adult Health
DX: R31.0 Gross hematuria (principal); Z87.442 Personal history of urinary calculi
CPT/HCPCS: 74178; Q9967; A4216

== ENCOUNTER → 2021-02-09 12:33 | Outpatient (CLI) | payer OTHER, SELFPAY ==
[2021-01-26 14:22] VITALS: BMI 29.9
[2021-02-09 13:56] LABS: PSA,Total- Diagnostic 3.76 ng/mL (0.0-4.0)
== END ==
PROVIDERS: PCP Family Medicine; Referring Provider Nurse Practitioner Adult Health; Visit Provider Nurse Practitioner Adult Health
DX: R97.20 Elevated prostate specific antigen [PSA] (principal)
CPT/HCPCS: 36415; 84153

== ENCOUNTER 2021-08-31 09:43 | Outpatient (CLI) | payer OTHER, SELFPAY ==
[2021-08-31 12:41] LABS: ALB/GLOB Ratio 0.9 RATIO (0.9-2.4); AST(SGOT) 22 U/L (15-37); Alanine Aminotransfer ALT/SGPT 43 U/L (16-61); Albumin, Serum 3.4 g/dL (3.2-5.0); Alkaline Phosphatase 127 U/L (45-117); Anion Gap 5 (5-15); BUN 12 mg/dL (7-18); BUN/Creat Ratio 14.1 RATIO (10-20); Calcium,Total 9.1 mg/dL (8.5-10.1); Chloride 111 mmol/L (98-107); Cholesterol 175 mg/dL (200); Creatinine, Serum 0.85 mg/dL (0.70-1.30); EST Glomerular Filtration Rate 96 mL/min (>60); Est Glom Filt Rate - Afr Amer 117 mL/min (>60); Globulin 3.7 g/dL (2.2-4.2); Glucose 96 mg/dL (74-106); High Density Lipoprotein 30 mg/dL; Potassium 3.4 mmol/L (3.5-5.1); Protein, Total 7.1 g/dL (6.4-8.2); Sodium Level 142 mmol/L (136-145); Triglycerides 348 mg/dL; Very Low Density Lipoprotein 70 mg/dL (5-40)
[2021-08-31 12:48] LABS: Microalbumin,Random Urine 79.2 mg/L (NO RANGE EST.); Microalbumin:Creatinine Ratio 31.9 mg/g CRE (<30 mg/g CRE)
== END 2021-08-31 23:59 | disposition home or self-care (01) ==
LOC: MFPLAB 09:46
PROVIDERS: PCP Family Medicine; Referring Provider Family Medicine; Visit Provider Family Medicine
DX: Z00.00 Encounter for general adult medical examination without abnormal findings (principal); I25.10 Atherosclerotic heart disease of native coronary artery without angina pectoris; I10 Essential (primary) hypertension
CPT/HCPCS: 36415; 80053; 80061; 82043; 82570

== ENCOUNTER 2021-09-27 22:21 | Inpatient (IN) | payer OTHER, SELFPAY ==
--- NOTE | 2021-09-27 00:20 | RAD_ITS ---
STUDY: X-RAY - ABDOMEN/PELVIS REASON FOR EXAM: Male, 65 years old. NG INSERTION TECHNIQUE: AP portable. 12:11 AM. COMPARISON: None. FINDINGS: Single view included lower chest upper abdomen. Tip of the nasogastric tube is in the mid stomach. Dilated small bowel. RAD/Abdomen Single View (Portable) IMPRESSION: NG tube as described. Dilated small bowel. Electronically Signed: Marian Christine MD at 1:08 EDT ,
[2021-09-27 22:22] VITALS: BP 183/97; PULSE 94; RESP 18; TEMP 36.1; O2SAT 100; BMI 31.2
--- NOTE | 2021-09-27 22:32 | CT_ITS ---
STUDY: CT ABDOMEN AND PELVIS WITH CONTRAST REASON FOR EXAM: Male, 65 years old. pain, tinkling bowel sounds, distension RADIATION DOSAGE (If Supplied By Facility): CTDIvol = ( 14.14 ) mGy, DLP = ( 1086.45 ) mGycm TECHNIQUE: Transaxial images were obtained from the dome of the diaphragm to the symphysis pubis without oral contrast. IV 100mL Isovue-370 was administered. Sagittal and coronal images were reconstructed. Individualized dose optimization techniques were used for this CT. COMPARISON: CT abdomen pelvis 02/05/2021. FINDINGS: LOWER CHEST: Minimal dependent atelectasis. Small hiatal hernia with distended lower esophagus. LIVER: Fatty infiltration. GALLBLADDER/BILE DUCTS: Gallbladder surgically absent. PANCREAS: Unremarkable. SPLEEN: Unremarkable. ADRENAL GLANDS: Unremarkable. KIDNEYS / URETERS: Unremarkable. BOWEL / MESENTERY: Moderately dilated small bowel. Distal small bowel is decreased caliber. Exact transition is not clearly identified. There is a short segment of wall thickening of dilated small bowel in the left midabdomen with adjacent stranding. This does not appear to be transition point. There is mild edema and stranding in the adjacent mesentery. Small amount of interloop fluid. The stomach is very distended with large amount of fluid and air. Scattered diverticula throughout the colon. APPENDIX: Identified and normal. No evidence of acute appendicitis. PERITONEUM: No free air. Small amount of free fluid in the pelvis. VESSELS: Abdominal aorta is normal caliber. RETROPERITONEUM: Unremarkable. REPRODUCTIVE ORGANS: Unremarkable. BLADDER: Unremarkable. ABDOMINAL WALL: Small bilateral inguinal hernias containing only fat, no bowel.. BONES: No acute abnormality. OTHER: None. CT/Abdomen/Pelvis W IV Cont ONLY IMPRESSION: Dilated small bowel consistent with distal small bowel obstruction. Etiology uncertain, possibly adhesions. Short segment of wall thickening of the dilated small bowel left midabdomen consistent with enteritis. Small amount of ascites. Mild stranding in the mesentery. Gastric distention. Colonic diverticulosis without evidence of acute diverticulitis. Electronically Signed: Marian Christine MD at 23:50 EDT ,
[2021-09-27] MEDS: 0.9% Normal Saline 1,000 ML 500 ML IV (22:42)
[2021-09-27] MEDS: Ondansetron 4 MG/2 ML Vial IV (22:42)
[2021-09-27] MEDS: Morphine 4 MG/ML Syringe IV (22:44)
[2021-09-27 22:49] LABS: Absolute Lymphocyte Count 1.71 X10^3/uL (0.83-4.51); Basophil# 0.04 X10^3/uL; Basophil% 0.2 % (0-1); Eosinophil# 0.01 X10^3/uL; Hematocrit 49.4 % (40-54); Hemoglobin 16.8 g/dL (13.0-16.5); Lymphocyte # 1.71 X10^3/ul (0.83-4.51); Lymphocyte % 6.6 % (19-41); Mean Corpuscular Hgb 28.3 pg (27.0-32.0); Mean Corpuscular Volume 83.2 fL (80-94); Mean Platelet Vol. 11.2 fl (6.2-12.0); Monocyte# 1.12 X10^3/uL; Monocyte% 4.3 % (0-10); NRBC Flagged by Analyzer 0 % (0-5); Neutrophil # 23.02 X10^3/uL (2.7-7.7); Neutrophil % 88.4 % (47-70); POSITIVE DIFFERENTIAL YES; Platelet Count 243 K/mm3 (150-450); RBC Distribution Width CV 14.8 % (11.6-14.6); RBC Distribution Width SD 43.9 fl (35.1-43.9); Red Blood Count 5.94 M/mm3 (4.6-6.2)
--- NOTE | 2021-09-27 22:49 | EDS_ITS ---
HPI HPI - GI History of Present Illness Chief Complaint: Abd Pain Informant: patient Narrative Narrative: Patient presents with abdominal pain and belching. It is a little hard to get the details of time of onset. He states he belches almost every night after dinner and that is not uncommon. He states sometimes his abdomen will get distended after eating but usually does not hurt. It sounded like there was a change in the character or pattern starting this morning. He states he had discomfort across the lower abdomen. He does not have any pain above the umbilicus. He has been belching more throughout the day rather than just this evening. He did have 2 bowel movements early this morning but none since. He thinks he is passing a little bit of gas since. Only prior abdominal surgeries are cholecystectomy and right inguinal hernia. He did also have bypass surgery which sounds like four-vessel about 5 or 6 years ago. He is on aspirin but no other anticoagulation. He denies fever nausea vomiting or urinary changes. [facility] Medical History (Updated 09/27/21 @ 23:[address] 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 Pure hypercholesterolemia Right inguinal hernia Screen for colon cancer Home Medications amlodipine 10 mg tablet 10 mg PO DAILY #30 tab 08/12/19 [Rx Last Taken Unknown] metoprolol succinate 25 mg tablet,extended release 24 hr 25 mg PO QDAY #30 tab 08/12/19 [Rx Last Taken Unknown] quinapril 10 mg tablet 10 mg PO DAILY #30 tab 08/12/19 [Rx Last Taken Unknown] aspirin 81 mg tablet,delayed release 81 mg PO DAILY 01/26/21 [History Last Taken Unknown] Allergy/AdvReac Type Severity Reaction Status Date / Time No Known Allergies Allergy Verified 09/27/21 22:24 Family History Mother Lymphoma Father Leukemia Surgical History History of cholecystectomy History of left heart catheterization (LHC) History of right inguinal hernia repair Hx of CABG (~06/04/16) Social History Smoking Status: Never smoker alcohol intake: never substance use type: does not use caffeine: Yes Type: carbonated beverages and tea what type of physical activity do you participate in: none seatbelt use: always do you feel safe at home: Yes ROS ROS ED Constitutional Constitutional ED: Denies chills or fever(s) ENT ENT ED: Denies rhinorrhea Cardiovascular Cardiovascular: Denies chest pain or palpitations Respiratory/Chest Respiratory/Chest: Denies cough or dyspnea Gastrointestinal Gastrointestinal: Reports abdominal pain and other Details: See HPI ; Denies constipation, diarrhea, melena, nausea or vomiting Genitourinary Genitourinary ED: Denies dysuria or hematuria Musculoskeletal Musculoskeletal: Denies back pain Integumentary Denies rash Neurologic Neurologic: Denies paresthesias or weakness Endocrine Endocrinology: Denies polydipsia or polyuria Hematologic/Lymphatic Hematologic/Lymphatic: Denies easy bleeding or easy bruising Allergic/Immunologic Allergic/Immunologic ED: Denies urticaria EXAM Physical Exam Const Vital Signs: 09/27/21 22:22 Temperature 97 F L Temperature Source Temporal Pulse Rate 94 Respiratory Rate 18 Blood Pressure 183/97 H Blood Pressure Mean 125 Pulse Ox 100 Oxygen Delivery Method Room Air Positive well nourished and well developed Constitutional Narrative: Patient looks mildly uncomfortable. He did walk himself back from triage. General Appearance ED: well developed; Negative for pallor HEENT normocephalic and atraumatic Eyes General Eye ED: Negative for pale conjunctiva or scleral icterus Neck no JVD Resp normal respiratory effort and clear to auscultation bilaterally Resp Narrative: No pain with a deep breath. Auscultation: Negative for rales, rhonchi or wheezes Cardio regular rate and regular rhythm GI GI Narrative: Patient's abdomen does look distended. It is somewhat taut on exam. There is very mild nonlocalized tenderness across the lower abdomen. There is no rebound or guarding. He does have very quiet bowel sounds with occasional tinkling. Back/Spine no CVA tenderness Extremity full ROM General Extremety ED: Negative for edema or tenderness General Extremity: Negative for edema Neuro Sensorium / Orientation: alert, oriented to person, oriented to place and oriented to time Psych mental status grossly normal Skin General Skin Exam: Negative for jaundice or pallor Lesions: no lesions Rashes: no rashes MDM MDM MDM Narrative Medical decision making narrative: Patient's labs do show an elevated white count. Glucose is slightly elevated at 190. Remainder of electrolytes are overall unremarkable. Minimal elevation of alk phos at 126. Lactate is high at 3.1. CT scan is pending final reading. I did look at this. There does appear to be a small bowel obstruction with distention and backup of fluid all the way to the stomach. Terminal ileum looks to be smaller. Although I do not have the final reading, we will initiate an NG due to the patient's presentation, history exam and CT findings. He does not have pain out of proportion to exam. He is given fluids for the lactate. His heart sounded regular and his rate is normal but we will get EKG to verify rhythm. CT read is small bowel obstruction with slight small bowel edema and area in the left midabdomen. No definitive transition point. I have discussed the case with both hospitalist and surgeon who have seen the patient here. Plan is IV fluids, antibiotics and NG tube. NG tube is putting out a lot of fluid. Patient is feeling much better. Lab Data Attestation: I reviewed the patient's lab results. Labs: Laboratory Results - last 24 hr 09/27/21 09/27/21 09/27/21 22:40 22:40 22:40 WBC 26.0 H RBC 5.94 Hgb 16.8 H Hct 49.4 MCV 83.2 MCH 28.3 MCHC 34.0 RDW Std Deviation 43.9 RDW Coeff of Hugo 14.8 H Plt Count 243 MPV 11.2 Immature Gran % (Auto) 0.500 Neut % (Auto) 88.4 H Lymph % (Auto) 6.6 L [facility] % (Auto) 4.3 Eos % (Auto) 0.0 Baso % (Auto) 0.2 Absolute Neuts (auto) 23.0 H Absolute Lymphs (auto) 1.71 Nucleated RBC % 0 Differential Comment SCANNED Sodium 142 Potassium 3.5 Chloride 111 H Carbon Dioxide 22.0 Anion Gap 9 BUN 21 H Creatinine 1.05 Estim Creat Clear Calc 62.64 Est GFR (MDRD) Af Amer 92 Est GFR (MDRD) Non-Af 76 BUN/Creatinine Ratio 20.0 Glucose 190 H Lactic Acid 3.1 H* Calcium 9.3 Total Bilirubin 0.70 AST 24 ALT 44 Alkaline Phosphatase 126 H Total Protein 7.9 Albumin 3.6 Globulin 4.3 H Albumin/Globulin Ratio 0.8 L Urine Color Urine Clarity Urine pH Ur Specific [place] Urine Protein Urine Glucose (UA) Urine Ketones Urine Occult Blood Urine Nitrite Urine Bilirubin Urine Urobilinogen Ur Leukocyte Esterase Urine RBC Urine WBC Ur Squamous Epith Cells Urine Bacteria Urine Mucus 09/28/21 00:01 WBC RBC Hgb Hct MCV MCH MCHC RDW Std Deviation RDW Coeff of Hugo Plt Count MPV Immature Gran % (Auto) Neut % (Auto) Lymph % (Auto) [facility] % (Auto) Eos % (Auto) Baso % (Auto) Absolute Neuts (auto) Absolute Lymphs (auto) Nucleated RBC % Differential Comment Sodium Potassium Chloride Carbon Dioxide Anion Gap BUN Creatinine Estim Creat Clear Calc Est GFR (MDRD) Af Amer Est GFR (MDRD) Non-Af BUN/Creatinine Ratio Glucose Lactic Acid Calcium Total Bilirubin AST ALT Alkaline Phosphatase Total Protein Albumin Globulin Albumin/Globulin Ratio Urine Color Yellow Urine Clarity Clear Urine pH 7.0 Ur Specific [place] 1.010 Urine Protein 30 H Urine Glucose (UA) 100 H Urine Ketones 5 H Urine Occult Blood Negative Urine Nitrite Negative Urine Bilirubin Negative Urine Urobilinogen Normal Ur Leukocyte Esterase Negative Urine RBC 0 SEEN Urine WBC 0 SEEN Ur Squamous Epith Cells 0 SEEN Urine Bacteria 0 SEEN Urine Mucus 0 SEEN Radiography Diagnostic Testing: Clinical Impression(s) from Imaging Studies Abdomen/Pelvis CT 09/27/21 22:32 IMPRESSION: Dilated small bowel consistent with distal small bowel obstruction. Etiology uncertain, possibly adhesions. Short segment of wall thickening of the dilated small bowel left midabdomen consistent with enteritis. Small amount of ascites. Mild stranding in the mesentery. Gastric distention. Colonic diverticulosis without evidence of acute diverticulitis. Electronically Signed: Marian Christine MD at 23:50 EDT , EKG Initial EKG: Comments: EKG done as part of work-up of abdominal pain read by me shows normal sinus rhythm with overall rate of 89. There is irregular baseline but no definitive evidence of acute ST elevation or depression. Slight first-degree AV block with TN interval of 208 ms. No ventricular ectopy. QRS duration and QTC are toward the high and at 116 and 484 ms respectively. Discharge Plan Dx/Rx/DC Orders Clinical Impression: Small bowel obstruction, Abdominal pain Disposition Disposition: Acute Care Hospital [facility]
[2021-09-27 23:06] LABS: Differential Indicated SCAN CRITERIA MET
[2021-09-27 23:12] LABS: ALB/GLOB Ratio 0.8 RATIO (0.9-2.4); AST(SGOT) 24 U/L (15-37); Alanine Aminotransfer ALT/SGPT 44 U/L (16-61); Albumin, Serum 3.6 g/dL (3.2-5.0); Alkaline Phosphatase 126 U/L (45-117); Anion Gap 9 (5-15); BUN 21 mg/dL (7-18); Calcium,Total 9.3 mg/dL (8.5-10.1); Chloride 111 mmol/L (98-107); Creatinine, Serum 1.05 mg/dL (0.70-1.30); EST Glomerular Filtration Rate 76 mL/min (>60); Est Glom Filt Rate - Afr Amer 92 mL/min (>60); Estimated Creatinine Clearance 62.64 ml/min; Globulin 4.3 g/dL (2.2-4.2); Glucose 190 mg/dL (74-106); Potassium 3.5 mmol/L (3.5-5.1); Protein, Total 7.9 g/dL (6.4-8.2); Sodium Level 142 mmol/L (136-145)
[2021-09-27 23:15] LABS: Lactic Acid 3.1 mmol/L (0.4-1.9)
[2021-09-27 23:16] LABS: Differential Comment SCANNED
--- NOTE | 2021-09-27 23:35 | EKG12_ITS ---
Test Reason : ABD PAIN Blood Pressure : / mmHG Vent. Rate : 089 BPM Atrial Rate : 089 BPM P-R Int : 208 ms QRS Dur : 116 ms QT Int : 398 ms P-R-T Axes : 028 -31 000 degrees QTc Int : 484 ms Normal sinus rhythm Left axis deviation Prolonged QT Poor R- wave progression Abnormal ECG Confirmed by MAGALY SCHULTZ, SKYLAR ([id number]), film editor supervisor JETHRO PIERRE ([id number]) on 10/03/2021 11:08:53 AM Referred By: Confirmed By:SKYLAR MCKENZIE MD
[2021-09-28] VITALS (19 sets, daily range): BP systolic 113–166; BP diastolic 66–96; PULSE 83–105; RESP 16–25; TEMP 36.2–36.9; O2SAT 90–97; BMI 30.7
[2021-09-28] MEDS: Lidocaine 4% 5 ML Ampul 2 ML INHALATION
--- NOTE | 2021-09-28 00:08 | HP.PCM.HOS_ITS ---
HPI - General General Date of Admission: 09/28/21 Date of Service: 09/28/21 Chief Complaint: Abdominal pain, bowel distention. HPI Narrative The patient is a 65 y/o M w/ PMHx: HTN, HLD, Obesity, CAD s/p CABG x 4 who presents to the [facility] ED on 09/27/21 with history of ongoing abdominal pain with frequent belching and intermittent episodes of abdominal distention which he notes is not abnormal as far as the frequent belching and distention but usually it resolves but he does not normally have the associated pain which he reports across his abdomen with 2 BM earlier in the day but decreased flatus since prompting eventual ED evaluation. He reports associated nausea. Following NGT placement in the ED he very quickly filled an entire canister even prior to NG KUb confirmation film. He notes feeling mildly improved and less distended. Work-up in the ED included T 97, heart rate 94, BP 183/97, respiratory rate 18, 100% on room air, CBC with WBC 26, hemoglobin 16.8, platelet 243 with a left shift, CMP with chloride 111, BUN/creat 21/1.05, glucose 190, unremarkable [place] profile except alk phos 126, lactic acid 3.1, CT A/P w/ dilated small bowel consistent with distal small bowel obstruction possibly from adhesions with a short segment of wall thickening of the dilated small bowel left mid abdomen consistent with enteritis with a small amount of ascites and mild stranding in the mesentery with gastric distention with colonic diverticulosis without any obvious evidence of acute diverticulitis, EKG with SR without acute evidence of ischemia. In the ED patient administered NS boluses, morphine, zofran. In the ED NG tube placed with repeat KUB following. ED contacted Dr. Smiley and awaiting call back to review case. [facility] Medical History (Updated 09/27/21 @ 23:[address] 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 Pure hypercholesterolemia Right inguinal hernia Screen for colon cancer Home Medications amlodipine 10 mg tablet 10 mg PO DAILY #30 tab 08/12/19 [Rx Last Taken Unknown] metoprolol succinate 25 mg tablet,extended release 24 hr 25 mg PO QDAY #30 tab 08/12/19 [Rx Last Taken Unknown] quinapril 10 mg tablet 10 mg PO DAILY #30 tab 08/12/19 [Rx Last Taken Unknown] aspirin 81 mg tablet,delayed release 81 mg PO DAILY 01/26/21 [History Last Taken Unknown] Allergy/AdvReac Type Severity Reaction Status Date / Time No Known Allergies Allergy Verified 09/27/21 22:24 Family History Mother Lymphoma Father Leukemia Surgical History History of cholecystectomy History of left heart catheterization (LHC) History of right inguinal hernia repair Hx of CABG (~06/04/16) Social History Smoking Status: Never smoker alcohol intake: never substance use type: does not use caffeine: Yes Type: carbonated beverages and tea what type of physical activity do you participate in: none seatbelt use: always do you feel safe at home: Yes ROS ROS Narrative Admission Review of Systems: CONSTITUTIONAL: No weight loss, fever, chills, + weakness or fatigue. HEENT: Eyes: No visual loss, blurred vision, double vision or yellow sclerae. Ears, Nose, Throat: No hearing loss, sneezing, congestion, runny nose or sore throat. SKIN: No rash or itching, lesions, wounds. CARDIOVASCULAR: No chest pain, chest pressure or chest discomfort, palpitations, edema, orthopnea, syncopal events. RESPIRATORY: No shortness of breath, cough or sputum, wheezing, hemoptysis. GASTROINTESTINAL: + anorexia, nausea without vomiting, abdominal distention, abdominal pain, No melena, BRBPR. GENITOURINARY: No dysuria, frequency, urgency or retention. NEUROLOGICAL: No headache, dizziness, syncope, paralysis, ataxia, numbness or tingling in the extremities, focal weakness, change in bowel or bladder control, seizure. MUSCULOSKELETAL: + muscle, back pain, joint pain or stiffness. HEMATOLOGIC: No anemia, bleeding or bruising. LYMPHATICS: No enlarged nodes. No history of splenectomy. PSYCHIATRIC: No history of depression or anxiety. ENDOCRINOLOGIC: No reports of sweating, cold or heat intolerance. No polyuria or polydipsia. ALLERGIES: No history of asthma, hives, eczema or rhinitis. Vital Signs Vital Signs Vital Signs: 09/27/21 22:22 Temperature 97 F L Temperature Source Temporal Pulse Rate 94 Respiratory Rate 18 Blood Pressure 183/97 H Blood Pressure Mean 125 Pulse Ox 100 Oxygen Delivery Method Room Air Weight Weight: 188 lb Body Mass Index (BMI) 31.2 Physical Exam Narrative Physical Examination: General: Awake, alert, oriented x 3 and cooperative, seated upright in the ED be d, uncomfortable appearing, but notes pain improving, currently rated 5/10 in severity.. Skin: Normal color, normal turgor, no icterus, no cyanosis. HEENT: AT/NC, EOMI, PERRLA, moderately dry MM, no carotid bruits or JVD noted. Lungs: CTA bilaterally, moderate effort, mild decrease BL bases, no rales, ronchi or wheezing. Heart: Currently regular rate and rhythm; no gallop, rub audible. Abdomen: Still mildly tense but improved he notes, generalized discomfort, worse in the lower abdomen, no rebound or guarding, still distended but per his report improved, nearly 1 canister full already following NG placement, nearly absent bowel sounds, difficult to assess HSM given distention and pain. Extremities: No cyanosis, clubbing, or edema. Neurological: Patient awake, alert, oriented x 3, cognitive function intact; pupils equally reactive to light and accommodation, cranial nerves II-XII gross ly normal, moving all 4 extremities, no focal deficits, strength moderately globally decreased secondary to acute presentation. Psychiatric: Affect appears uncomfortable, no acute evidence of depressive or anxiety feelings. Results Lab / Micro Data Result Diagrams: 09/27/21 22:40 09/27/21 22:40 Labs: Laboratory Results - last 24 hr 09/27/21 22:40: WBC 26.0 H, RBC 5.94, Hgb 16.8 H, Hct 49.4, MCV 83.2, MCH 28.3, MCHC 34.0, RDW Std Deviation 43.9, RDW Coeff of Hugo 14.8 H, Plt Count 243, MPV 11.2, Immature Gran % (Auto) 0.500, Neut % (Auto) 88.4 H, Lymph % (Auto) 6.6 L, [place] % (Auto) 4.3, Eos % (Auto) 0.0, Baso % (Auto) 0.2, Absolute Neuts (auto) 23.0 H, Absolute Lymphs (auto) 1.71, Nucleated RBC % 0, Differential Comment SCANNED 09/27/21 22:40: Sodium 142, Potassium 3.5, Chloride 111 H, Carbon Dioxide 22.0, Anion Gap 9, BUN 21 H, Creatinine 1.05, Estim Creat Clear Calc 62.64, Est GFR ( MDRD) Af Amer 92, Est GFR (MDRD) Non-Af 76, BUN/Creatinine Ratio 20.0, Glucose 190 H, Calcium 9.3, Total Bilirubin 0.70, AST 24, ALT 44, Alkaline Phosphatase 126 H, Total Protein 7.9, Albumin 3.6, Globulin 4.3 H, Albumin/Globulin Ratio 0.8 L 09/27/21 22:40: Lactic Acid 3.1 H* Radiology Impression Abdomen/Pelvis CT 09/27/21 22:32 IMPRESSION: Dilated small bowel consistent with distal small bowel obstruction. Etiology uncertain, possibly adhesions. Short segment of wall thickening of the dilated small bowel left midabdomen consistent with enteritis. Small amount of ascites. Mild stranding in the mesentery. Gastric distention. Colonic diverticulosis without evidence of acute diverticulitis. Electronically Signed: Marian Christine MD at 23:50 EDT , Assessment & Plan Assessment/Plan (1) Small bowel obstruction: PLAN: The patient is a 65 y/o M w/ PMHx: HTN, HLD, Obesity, CAD s/p CABG x 4 who presents to the [facility] ED on 09/27/21 with history of ongoing abdominal pain with frequent belching and intermittent episodes of abdominal distention which he notes is not abnormal as far as the frequent belching and distention but usually it resolves but he does not normally have the associated pain which he reports across his abdomen with 2 BM earlier in the day but decreased flatus since prompting eventual ED evaluation. #1. Abdominal pain, nausea, distention w/ SBO with concern for acute enteritis with associated lactic acidosis: Will admit to MS telemetry to be more cautious given concern for significantly elevated WBC with left shift as well as lactic acidosis with intra-abdominal infection and concurrent SBO, maintain on IVFs with lactic acid trending per facility protocol, continue NGT to suction, strict I&Os, IV pain/anti-emetics PRN, serial KUB as needed to montior bowel function, Famotidine IV, maintain NPO on bowel rest, will maintain on IV Zosyn given bowel wall thickening with concern for enteritis. General surgery consulted, pending. #2. Hyperglycemia: Admission glucose 190, no diabetic history, likely stress response given acute presentation as noted number 1, to be cautious will obtain A1c. #3. CAD: Status post CABG, suspected x 4, holding oral regimen given SBO presentation, once appropriate we will add back patient beta-luis m, JESSICA inhibitor and aspirin therapy. #4. Hypertension: Holding patient oral regimen, will have as needed IV hydralazine in interim. #5. Hyperlipidemia: Not on statin therapy, defer to outpatient. #6. Obesity: Weight loss and lifestyle changes encouraged. #7. DVT prophylaxis: SCDs, will initiate Lovenox. Charges/Coding Visit Charges Inpatient E&M: 72088 Init Hosp L3
[2021-09-28 00:10] LABS: Bacteria 0 SEEN /hpf (None Seen); Mucous, Urine 0 SEEN /hpf (<or=2+); Red Blood Cells-Urine 0 SEEN /hpf (0-5); Squamous Epithelial Cells - UA 0 SEEN /hpf (0-5); White Blood Cells 0 SEEN /hpf (0-5)
[2021-09-28 00:12] LABS: Color, Urine Yellow (Yellow); Glucose, Dipstick 100 mg/dl (Normal); Ketone-Dipstick 5 mg/dl (Negative); Leukocyte Esterase-Dipstick Negative /ul (Negative); Nitrite-Dipstick Negative (Negative); Occult Blood-Urine Negative /ul (Negative); Protein-Dipstick 30 mg/dl (Negative); Urine Bilirubin Dipstick Negative (Negative); Urine Clarity Clear (Clear); Urine Urobilinogen Normal (Normal)
[2021-09-28] MEDS: Oxymetazoline 0.05% 1 SPRAY SPRAY.BTL 2 SPRAY NASAL (00:30)
--- NOTE | 2021-09-28 00:44 | PCM.HP.STD ---
[facility] - General General Date of Admission: 09/28/21 Chief Complaint: Abdominal pain, bowel distention. HPI Narrative MAIRA BAGLEY, is a 65 M who presents with partial small bowel obstruction. He presents with one day history of abdominal pain and bloating. He has had nausea, but denies emesis, has had decreased appetite and not drinking much for entire day. He noted abdominal pain mid morning 09/27/2021. He had a bowel movement on morning of above, also passed flatus in the early afternoon but none since. His pain level was 5-6 out of 10, after NG tube placement and decompression, he states that he has no pain, only sore. With palpation, pain is 3-4 out of 10. He has no previous history of bowel obstruction., He had a laparoscopic [place] hernia repair by Dr. Astorga about 5-6 years ago and laparoscopic cholecystectomy many years ago. He presents with elevated WBC, elevated lactic acid. Findings of bowel obstruction by CT scan, but no oral contrast. [facility] Medical History Abnormal CT scan, chest Abnormal stress test Atherosclerotic heart disease of [place] coronary artery without angina pectoris Chest pain Edema Essential hypertension History of echocardiogram Hypertriglyceridemia Other usp (current) drug therapy Pure hypercholesterolemia Right inguinal hernia Screen for colon cancer Home Medications amlodipine 10 mg tablet 10 mg PO DAILY #30 tab 08/12/19 [Rx Last Taken Unknown] metoprolol succinate 25 mg tablet,extended release 24 hr 25 mg PO QDAY #30 tab 08/12/19 [Rx Last Taken Unknown] quinapril 10 mg tablet 10 mg PO DAILY #30 tab 08/12/19 [Rx Last Taken Unknown] aspirin 81 mg tablet,delayed release 81 mg PO DAILY 01/26/21 [History Last Taken Unknown] Allergy/AdvReac Type Severity Reaction Status Date / Time No Known Allergies Allergy Verified 09/27/21 22:24 Family History Mother Lymphoma Father Leukemia Surgical History History of cholecystectomy History of left heart catheterization (LHC) History of right inguinal hernia repair Hx of CABG (~06/04/16) Social History Smoking Status: Never smoker alcohol intake: never substance use type: does not use caffeine: Yes Type: carbonated beverages and tea what type of physical activity do you participate in: none seatbelt use: always do you feel safe at home: Yes ROS Constitutional Constitutional: Reports anorexia; Denies fever(s) Cardiovascular Cardiovascular: Denies chest pain Respiratory/Chest Respiratory/Chest: Denies dyspnea Gastrointestinal Gastrointestinal: Reports abdominal pain and nausea; Denies vomiting Genitourinary Genitourinary: Denies hematuria Musculoskeletal Musculoskeletal: Denies abnormal gait Integumentary Integumentary: Denies jaundice Neurologic Neurologic: Denies dizziness Vital Signs Vital Signs Vital Signs: 09/27/21 22:22 09/28/21 00:31 Temperature 97 F L 98.1 F Temperature Source Temporal Oral Pulse Rate 94 101 H Respiratory Rate 18 25 H Blood Pressure 183/97 H 166/88 H Blood Pressure Mean 125 114 Pulse Ox 100 94 Oxygen Delivery Method Room Air Room Air Weight Weight: 85.275 kg Body Mass Index (BMI) 31.2 Physical Exam Narrative not in distress, oriented and alert HEENT HEENT Narrative: wearing glasses, no icterus noted Resp normal respiratory effort Cardio regular rate GI GI Narrative: abdomen is protuberant and tympanitic, at least a liter out from NG tube Inspection: abdominal distention Extremity no clubbing, cyanosis or edema Results Lab / Micro Data Result Diagrams: 09/27/21 22:40 09/27/21 22:40 Labs: Laboratory Results - last 24 hr 09/27/21 22:40: WBC 26.0 H, RBC 5.94, Hgb 16.8 H, Hct 49.4, MCV 83.2, MCH 28.3, MCHC 34.0, RDW Std Deviation 43.9, RDW Coeff of Hugo 14.8 H, Plt Count 243, MPV 11.2, Immature Gran % (Auto) 0.500, Neut % (Auto) 88.4 H, Lymph % (Auto) 6.6 L, [place] % (Auto) 4.3, Eos % (Auto) 0.0, Baso % (Auto) 0.2, Absolute Neuts (auto) 23.0 H, Absolute Lymphs (auto) 1.71, Nucleated RBC % 0, Differential Comment SCANNED 09/27/21 22:40: Sodium 142, Potassium 3.5, Chloride 111 H, Carbon Dioxide 22.0, Anion Gap 9, BUN 21 H, Creatinine 1.05, Estim Creat Clear Calc 62.64, Est GFR (MDRD) Af Amer 92, Est GFR (MDRD) Non-Af 76, BUN/Creatinine Ratio 20.0, Glucose 190 H, Calcium 9.3, Total Bilirubin 0.70, AST 24, ALT 44, Alkaline Phosphatase 126 H, Total Protein 7.9, Albumin 3.6, Globulin 4.3 H, Albumin/Globulin Ratio 0.8 L 09/27/21 22:40: Lactic Acid 3.1 H* 09/28/21 00:01: Urine Color Yellow, Urine Clarity Clear, Urine pH 7.0, Ur Specific [place] 1.010, Urine Protein 30 H, Urine Glucose (UA) 100 H, Urine Ketones 5 H, Urine Occult Blood Negative, Urine Nitrite Negative, Urine Bilirubin Negative, Urine Urobilinogen Normal, Ur Leukocyte Esterase Negative, Urine RBC 0 SEEN, Urine WBC 0 SEEN, Ur Squamous Epith Cells 0 SEEN, Urine Bacteria 0 SEEN, Urine Mucus 0 SEEN Radiology Impression Abdomen/Pelvis CT 09/27/21 22:32 IMPRESSION: Dilated small bowel consistent with distal small bowel obstruction. Etiology uncertain, possibly adhesions. Short segment of wall thickening of the dilated small bowel left midabdomen consistent with enteritis. Small amount of ascites. Mild stranding in the mesentery. Gastric distention. Colonic diverticulosis without evidence of acute diverticulitis. Electronically Signed: Marian Christine MD at 23:50 EDT Reading Location ID and State: [facility] / [place] Tel , Service support , Assessment & Plan Assessment/Plan (1) Small bowel obstruction: PLAN: admit for NG tube decompression, IV hydration, pain control may consider CT scan with oral contrast gastrograffin in morning appreciate consultation from Internal Medicine
[2021-09-28] MEDS: 0.9% Normal Saline 1,000 ML 125 ML IV ×4 (01:34→23:18)
[2021-09-28 02:48] LABS: Reflex Lactate? Y
[2021-09-28 03:50] LABS: Absolute Neutrophil Count 24.6 X10^3/uL (2.0-7.7); Basophil# 0.05 X10^3/uL; Basophil% 0.2 % (0-1); Hematocrit 46.4 % (40-54); Hemoglobin 15.5 g/dL (13.0-16.5); Lymphocyte % 1.1 % (19-41); Mean Corp Hgb Conc 33.4 g/dL (32-36); Mean Corpuscular Hgb 28.5 pg (27.0-32.0); Mean Corpuscular Volume 85.3 fL (80-94); Mean Platelet Vol. 11.3 fl (6.2-12.0); Monocyte# 1.16 X10^3/uL; Monocyte% 4.4 % (0-10); NRBC Flagged by Analyzer 0 % (0-5); Neutrophil % 93.4 % (47-70); POSITIVE DIFFERENTIAL YES; Platelet Count 184 K/mm3 (150-450); RBC Distribution Width CV 14.8 % (11.6-14.6); RBC Distribution Width SD 45.5 fl (35.1-43.9); Red Blood Count 5.44 M/mm3 (4.6-6.2); White Blood Count 26.4 K/mm3 (4.4-11.0)
[2021-09-28 03:52] LABS: Differential Indicated SCAN CRITERIA MET
[2021-09-28 04:23] LABS: ALB/GLOB Ratio 0.8 RATIO (0.9-2.4); AST(SGOT) 53 U/L (15-37); Alanine Aminotransfer ALT/SGPT 66 U/L (16-61); Alkaline Phosphatase 130 U/L (45-117); Anion Gap 8 (5-15); BUN 18 mg/dL (7-18); BUN/Creat Ratio 18.8 RATIO (10-20); Calcium,Total 8.2 mg/dL (8.5-10.1); Chloride 114 mmol/L (98-107); Creatinine, Serum 0.96 mg/dL (0.70-1.30); EST Glomerular Filtration Rate 84 mL/min (>60); Est Glom Filt Rate - Afr Amer 101 mL/min (>60); Estimated Creatinine Clearance 68.51 ml/min; Globulin 3.8 g/dL (2.2-4.2); Glucose 123 mg/dL (74-106); Protein, Total 6.8 g/dL (6.4-8.2); Sodium Level 143 mmol/L (136-145)
[2021-09-28 04:24] LABS: Lactic Acid 3.8 mmol/L (0.4-1.9)
[2021-09-28 04:30] LABS: Differential Comment SCANNED
[2021-09-28] MEDS: Potassium Chloride 10mEq/100mL 10 MEQ/100 ML IV.SOLN. 100 MEQ IV BOLUS ×4 (05:01→09:10)
--- NOTE | 2021-09-28 05:40 | RAD_ITS ---
STUDY: X-RAY - ABDOMEN/PELVIS REASON FOR EXAM: Male, 65 years old. SBO TECHNIQUE: Single AP view of the abdomen / pelvis. COMPARISON: 09/29/2019 FINDINGS: Esophagogastric tube extends the stomach. There is gaseous distention of the colon and loops of small intestine, consistent with a large bowel obstruction. There is no demonstrated free abdominal air. The visualized liver, spleen and kidneys are grossly normal in size and morphology. Excreted contrast in the urinary bladder. Cholecystectomy clips project in the right upper abdomen. Normal visualized osseous structures. RAD/Abdomen Single View (Portable) IMPRESSION: Stable small bowel obstruction. Electronically Signed: Patrick Devlin MD ([place]) at 9:11 EDT ,
[2021-09-28 08:59] LABS: Hemoglobin A1c 5.3 % (3.8-5.6)
[2021-09-28] MEDS: Famotidine 200 MG/20 ML MDV 20 MG in 0.9% Normal Saline (Pres. free 8 ML 300 MG IV ×2 (09:11→21:50)
[2021-09-28 09:13] LABS: Lactic Acid 2.8 mmol/L (0.4-1.9)
--- NOTE | 2021-09-28 10:28 | CT_ITS ---
STUDY: CT ABDOMEN AND PELVIS WITHOUT CONTRAST REASON FOR EXAM: Male, 65 years old. Rising lactic acid. RADIATION DOSAGE (If Supplied By Facility): CTDIvol = ( 11.82 ) mGy, DLP = ( 605.32 ) mGycm TECHNIQUE: Transaxial images were obtained from the dome of the diaphragm to the symphysis pubis without oral contrast, and without intravenous contrast. Sagittal and coronal images were reconstructed. Individualized dose optimization techniques were used for this CT. COMPARISON: Comparison is made with prior study dated 09/27/2021 at 11:24 PM. FINDINGS: Increased markings are seen at the lung bases suggestive of atelectasis. Prior CABG. There is decreased attenuation of the liver consistent with steatosis. There are surgical clips in the gallbladder fossa consistent with a prior cholecystectomy. Normal spleen. Normal pancreas. Normal bilateral adrenal glands. Normal right kidney. Normal left kidney. A nasogastric tube is seen. Persistent dilatation of the distal small bowel loops with fluid. There has been mild improvement. The transition point is in the distal ileum. Questionable focal mass lesion at the transition point. There are scattered colonic diverticula consistent with diverticulosis. Mild residual fluid in the mesentery although this has improved. There is non-visualization of the appendix. Normal abdominal aorta. Normal inferior vena cava. There is borderline retroperitoneal lymphadenopathy with enlarged nodes no greater than 10mm in the short axis diameter. Normal urinary bladder. Normal abdominal wall. Normal osseous structures. CT/Abdomen/Pel W ORAL Cont Only IMPRESSION: Persistent small bowel obstruction with the transition point in the terminal ileum as seen on axial image #103. Mild improvement in the fluid in the mesentery. Electronically Signed: Hossein Modi MD at 11:19 EDT ,
[2021-09-28 11:59] LABS: Reflex Lactate? Y
--- NOTE | 2021-09-28 12:16 | PCM.HOSP.N ---
Hospitalist Note Patient was seen and examined today briefly, I talked with general surgery who was seeing the patient in consultation, general surgery is planning on taking the patient for surgery today due to his bowel obstruction. I relayed this to the patient. Patient appears medically stable at this time, lungs are clear, heart rate and rhythm is regular, abdomen is distended with no bowel sounds.
[2021-09-28] MEDS: Lidocaine 1% /Epi 1:100 (50ml) 50 ML VIAL (13:11)
[2021-09-28 13:14] LABS: Lactic Acid 2.3 mmol/L (0.4-1.9)
--- NOTE | 2021-09-28 15:14 | CASEMGMT ---
Cecelia SEGUNDO CM attempted to complete CM assessment but pt is off the floor in the OR at this time. CM to try again later. Sanaz SEGUNDO CM
--- NOTE | 2021-09-28 15:18 | PCM.OPRPT ---
Report of Operation Date of Procedure: 09/28/21 Pre-Operative Diagnosis: small bowel obstruction Post-Operative Diagnosis: small bowel obstruction due to adhesion in RLQ of abdomen Surgery/Procedure Performed:: diagnostic laparoscopy, exploratory laparotomy, lysis of adhesions Description of Surgical Findings:: dilated small bowel to terminal ileum with decompressed cecum, adhesions in RLQ of abdomen with recurrent RIH, normal appendix Surgeon: Crys Smiley call center support consultant: Dallas Tam Type of Anesthesia: General Anesthesiologist: Erin Lind Specimen's removed: none Estimated Blood Loss (mL): 30 ml Fluids Replaced: 1500 ml RL Description of Procedure: After informed consent was obtained, the patient was brought to the Operating Room. Appropriate time out protocol was followed. The patient was then placed under general anesthesia. The abdomen was then prepped with a sterile surgical skin preparation. Sterile surgical drapes were placed. This skin and subcutaneous tissues were then widely infiltrated with the local anesthetic. Local anesthetic of 0.25% marcaine with epinephrine, was infiltrated in the tissues for postoperative pain control and hemostasis. An area superior to the umbilical dimple was grasped with penetrating clamps and the skin and subcutaneous tissues were infiltrated with 0.25% marcaine with epinephrine. A skin incision was then made with a 15 blade scalpel. The anterior abdominal wall was elevated and dissection was done sharply layer by layer until the intraabdominal cavity was noted. A 12 mm trocar was then placed into the intraabdominal cavity. A 10mm laparoscope was then inserted into the trocar and careful attention was directed to the intraabdominal contents. There was no evidence of injury to any intraabdominal organs from insertion of the trocar. Under direct visualization, a 5mm midline lower abdominal trocar was placed. The intraabdominal contents were visualized, the small bowel was largely dilated. It was followed from proximally to the terminal ileum, in which it appeared to be tethered but the point of tether could not be visualized due to the dilated bowel. There also appeared to be a indentation of tissues in the right inguinal area - probably a recurrent RIH. Because of the large amount of intraabdominal tissues, this precluded adequate visualization of the point of adhesions and therefore the procedure was converted to an open laparotomy. A skin incision was then made with a 10 blade scalpel at an area just superior to the umbilical dimple and extended inferiorly. Any hemorrhage was adequately controlled with electrocautery. The fascia was identified. It was carefully incised and the intraabdominal cavity was entered. There was peritoneal fluid noted, but it was not purulent. A Ron retractor was used for increased operative exposure. There were dense adhesions in the right lower quadrant of the abdomen that was broken down by finger blunt dissection. This allowed elevation of the cecum anteriorly for visualization within the wound. The appendix was visualized and was normal and small. At this point, the bowel appeared to be decompressed. The small bowel was evaluated from the ligament of Trietz to the cecum and there was no other point of obstruction. There were two small areas of the mid jejunum that had ischemic spots of the wall and these were oversewn with figure of 8 vicryl suture. Once again, the small bowel was examined from the ligament of Treitz to the ileocecal valve and no other points of obstruction or injury were noted The small bowel was then placed back in its proper anatomical position. The abdomen was vigorously irrigated with warmed normal saline, and all irrigant was aspirated out. A 15 Fr passive round drain was placed in the pelvis and brought out via a separate skin incision. The fascia was then reapproximated along the midline vertically with a continuous looped #1 PDS suture. The skin was reapproximated with skin artur. Sterile dressing was applied. The patient was then extubated by the anesthesia provider. The patient was brought from to the Recovery Room in stable condition. Complications none noted Admit VTE Documentation VTE Present on Admission: Yes VTE Mechan Device Prophylaxis: SCD's
--- NOTE | 2021-09-28 16:28 | PCM.PN.BLA ---
Progress Note Patient underwent diagnostic laparoscopy converted to open exploratory laparotomy with lysis of adhesions. The procedure and findings were discussed at the patient's request with Jennie, his significant other, and Cholo his son.
[2021-09-28] MEDS: Ketorolac 15 MG/ML Vial IV (16:47)
[2021-09-28] MEDS: Morphine 4 MG/ML Syringe IV (22:28)
[2021-09-29] VITALS (11 sets, daily range): BP systolic 112–141; BP diastolic 66–89; PULSE 75–104; RESP 16–18; TEMP 36.8–37.3; O2SAT 92–94
[2021-09-29] MEDS: Morphine 4 MG/ML Syringe IV (02:05)
[2021-09-29] MEDS: Ketorolac 15 MG/ML Vial IV ×3 (05:00→22:05)
[2021-09-29] MEDS: 0.9% Normal Saline 1,000 ML 125 ML IV ×3 (07:19→22:13)
[2021-09-29] MEDS: Famotidine 200 MG/20 ML MDV 20 MG in 0.9% Normal Saline (Pres. free 8 ML 300 MG IV ×2 (10:00→21:57)
--- NOTE | 2021-09-29 10:10 | CASEMGMT ---
SANYA PALACIOS assessment: Face to Face with patient for initial transition planning/care coordination assessment. SANYA PALACIOS introduced self and role at [facility], pt voices understanding and consents to assessment. Pt is sitting up in bed in no distress with NG in place. Pt is A/Ox4 and answers all questions appropriately. Pt's sig other is at bedside during assessment. Care providers, pharmacy, and demographics verified/updated. Presentation: Pt w/ abd pain for couple days Admitting dx: SBO, enteritis PCP: Jasiel Specialists: Jared, cardio; Baljit, surgeon Preferred Pharmacy: [facility] Insurance: MMO Prescription Benefit: MMO Living Will/HPOA: Pt does not have LW/HPOA but states has info at home. LNOK: Jennie Resendiz, sig other; Cholo Elam, son; Sobeida Rios, daughter Living Arrangements: Pt lives with sig other in 1 story home with 3 steps in and states no concerns at home. Pt is independent with ADL's. Transportation: Pt drives self and states no transportation concerns. DME/HHC: Pt states no current DME or need for any further DME. Pt states no hx of HHC or SNF. Pt states no concerns with going home at time of discharge. 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 Pt states does not smoke cigarettes or drink ETOH. Pt states no concerns/needs. CM to follow for any further discharge planning/needs. Advised pt to ask for CM if any further questions/concerns/needs arise, voices understanding. Pt Goal: Home Plan[place] SANYA PALACIOS
--- NOTE | 2021-09-29 10:19 | PCM.PN.SRG ---
Subjective Subjective Patient feeling well, states that pain today less than yesterday Objective Data Objective Data Vital Signs: Vital Signs Temp Pulse Resp BP Pulse Ox 98.5 F 86 18 124/79 H 92 09/29/21 09:39 09/29/21 09:39 09/29/21 09:39 09/29/21 09:39 09/29/21 09:39 Oxygen Flow Rate (L/min) 3 Oxygen Delivery Method Room Air Weight: 85.1 kg Body Mass Index (BMI) 30.7 Intake & Output: Intake and Output for Last 24 Hours 09/27/21 09/28/21 09/29/21 23:59 23:59 23:59 Intake Total 4636.66 / 4636.66 1110 / 1110 Output Total 4290 / 4290 210 / 210 Balance 346.66 / 346.66 900 / 900 Lab / Micro Data Result Diagrams: 09/28/21 03:30 09/28/21 03:30 Labs: Laboratory Results - last 24 hr 09/28/21 12:18: Lactic Acid 2.3 H* Micro: Microbiology 09/28/21 13:12 Interface Orders SARS-CoV-2 Antigen (Rapid) - Final Radiography Diagnostic Testing: Radiology Impression Abdomen CT 09/28/21 10:28 IMPRESSION: Persistent small bowel obstruction with the transition point in the terminal ileum as seen on axial image #103. Mild improvement in the fluid in the mesentery. Electronically Signed: Hossein Modi MD at 11:19 EDT , Physical Exam Const alert and oriented x3 General Appearance: cooperative Neck full ROM and supple Resp normal respiratory effort Effort and Inspection: able to speak in complete sentences GI GI Narrative: abdomen is soft, less distended dressing intact without seepage PIEDAD output is serosanguinous Assessment & Plan Assessment/Plan (1) Small bowel obstruction: PLAN: POD#1 s/p lysis of adhesions maintain NG tube until passing flatus may have sips and chips I have encouraged patient to move by bedside to encourage peristalsis continue present therapy
--- NOTE | 2021-09-29 15:09 | PCM.PN.HOSP ---
Subjective Subjective Patient was seen and examined today, I talked briefly with general surgery about his care. Patient has an NG inserted at this time, his abdomen still looks moderately distended, it is tympanic, bowel sounds are diminished. I talked to his who was in the room at the time of my examination. Objective Data Objective Data Vital Signs: Vital Signs Temp Pulse Resp BP Pulse Ox 98.5 F 86 18 124/79 H 92 09/29/21 09:39 09/29/21 09:39 09/29/21 09:39 09/29/21 09:39 09/29/21 09:39 Oxygen Flow Rate (L/min) 3 Oxygen Delivery Method Room Air Weight: 85.1 kg Body Mass Index (BMI) 30.7 Intake & Output: Intake and Output for Last 24 Hours 09/27/21 09/28/21 09/29/21 23:59 23:59 23:59 Intake Total 4636.66 / 4636.66 1160 / 1160 Output Total 4290 / 4290 460 / 460 Balance 346.66 / 346.66 700 / 700 Lab / Micro Data Result Diagrams: 09/28/21 03:30 09/28/21 03:30 Micro: Microbiology 09/28/21 13:12 Interface Orders SARS-CoV-2 Antigen (Rapid) - Final Physical Exam Const alert, oriented x3, no apparent distress and healthy appearing General Appearance: cooperative, well kempt and well developed Orientation / Consciousness: awake, oriented to person, oriented to place and oriented to time HEENT normocephalic, head/scalp atraumatic and moist oral mucous membranes Head and Scalp: normocephalic Eyes PERRL, EOMs intact bilaterally and conjunctivae normal Neck nuchal rigidity, supple, no JVD, thyroid normal and no carotid bruits General: trachea midline Resp normal respiratory effort, no retractions, no use of accessory muscles and clear to auscultation bilaterally Auscultation: Negative for rales, rhonchi or wheezes Cardio regular rate, regular rhythm, S1 normal heart sound, S2 normal heart sound, no murmurs, no rub and no gallops GI GI Narrative: Abdomen is moderately distended, bowel sounds are diminished in all 4 quadrants, abdomen is soft, abdomen is tympanic Extremity no clubbing, cyanosis or edema Skin no rashes or lesions noted General Skin Exam: no breakdown Neuro oriented x3, CN's II-XII intact bilaterally, no focal motor deficits and no sensory deficits noted Sensorium / Orientation: awake and alert Speech: speech normal Psych affect normal Assessment & Plan Assessment/Plan (1) Small bowel obstruction: PLAN: 1. Small bowel obstruction-postop day #1 lysis of adhesions, maintain NG tube and surgical treatment per Dr. Smiley. Patient was on courage to move as much as possible and even walk down the [place] if able to with his NG clamped. #2 coronary artery disease-this is stable at this time, patient's oral medications are being held at this time #3 essential hypertension-patient's blood pressure is stable at this time, as needed medication will be given for blood pressure elevation via IV Labs will be repeated. Charges/Coding Visit Charges Inpatient E&M: 31187 Subs Hosp L2
[2021-09-29 16:13] LABS: Absolute Lymphocyte Count 1.26 X10^3/uL (0.83-4.51); Absolute Neutrophil Count 10.4 X10^3/uL (2.0-7.7); Basophil# 0.03 X10^3/uL; Basophil% 0.2 % (0-1); Eosinophil# 0.03 X10^3/uL; Eosinophils% 0.2 % (0-5); Hematocrit 40.4 % (40-54); Hemoglobin 13.1 g/dL (13.0-16.5); Lymphocyte # 1.26 X10^3/ul (0.83-4.51); Lymphocyte % 9.7 % (19-41); Mean Corp Hgb Conc 32.4 g/dL (32-36); Mean Corpuscular Hgb 27.8 pg (27.0-32.0); Mean Corpuscular Volume 85.8 fL (80-94); Mean Platelet Vol. 11.2 fl (6.2-12.0); Monocyte# 1.23 X10^3/uL; Monocyte% 9.5 % (0-10); NRBC Flagged by Analyzer 0 % (0-5); Neutrophil # 10.38 X10^3/uL (2.7-7.7); Platelet Count 157 K/mm3 (150-450); RBC Distribution Width CV 15.5 % (11.6-14.6); RBC Distribution Width SD 47.8 fl (35.1-43.9); Red Blood Count 4.71 M/mm3 (4.6-6.2)
[2021-09-29 16:49] LABS: ALB/GLOB Ratio 0.6 RATIO (0.9-2.4); AST(SGOT) 22 U/L (15-37); Alanine Aminotransfer ALT/SGPT 57 U/L (16-61); Albumin, Serum 2.3 g/dL (3.2-5.0); Alkaline Phosphatase 72 U/L (45-117); Anion Gap 4 (5-15); BUN 24 mg/dL (7-18); BUN/Creat Ratio 24.3 RATIO (10-20); Calcium,Total 8.3 mg/dL (8.5-10.1); Chloride 118 mmol/L (98-107); Creatinine, Serum 0.99 mg/dL (0.70-1.30); EST Glomerular Filtration Rate 81 mL/min (>60); Est Glom Filt Rate - Afr Amer 98 mL/min (>60); Estimated Creatinine Clearance 66.44 ml/min; Globulin 3.6 g/dL (2.2-4.2); Glucose 111 mg/dL (74-106); Potassium 3.4 mmol/L (3.5-5.1); Protein, Total 5.9 g/dL (6.4-8.2); Sodium Level 146 mmol/L (136-145)
[2021-09-30 02:00] VITALS: BP 138/81; PULSE 81; RESP 16; TEMP 36.8; O2SAT 93
[2021-09-30] MEDS: Ketorolac 15 MG/ML Vial IV (06:17)
[2021-09-30] MEDS: 0.9% Normal Saline 1,000 ML 125 ML IV (06:25)
[2021-09-30 06:57] VITALS: PULSE 80
[2021-09-30 07:08] VITALS: O2SAT 94
[2021-09-30 08:00] VITALS: BP 136/87; PULSE 82; RESP 18; TEMP 37.2; O2SAT 95
[2021-09-30] MEDS: Famotidine 200 MG/20 ML MDV 20 MG in 0.9% Normal Saline (Pres. free 8 ML 300 MG IV (10:07)
[2021-09-30] MEDS: 0.9% Saline Lock 10 ML Syringe IV (10:10)
--- NOTE | 2021-09-30 10:28 | PCM.PN.SRG ---
Subjective Subjective patient passing flatus, has minimal abdominal tenderness, he states abdomen is back to normal size Objective Data Objective Data Vital Signs: Vital Signs Temp Pulse Resp BP Pulse Ox 98.9 F 82 18 136/87 H 95 09/30/21 08:00 09/30/21 08:00 09/30/21 08:00 09/30/21 08:00 09/30/21 08:00 Oxygen Flow Rate (L/min) 3 Oxygen Delivery Method Room Air Weight: 85.1 kg Body Mass Index (BMI) 30.7 Intake & Output: Intake and Output for Last 24 Hours 09/28/21 09/29/21 09/30/21 23:59 23:59 23:59 Intake Total 4636.66 / 4636.66 3351.25 / 3351.25 1050 / 1050 Output Total 4290 / 4290 785 / 785 740 / 740 Balance 346.66 / 346.66 2566.25 / 2566.25 310 / 310 Lab / Micro Data Result Diagrams: 09/29/21 16:00 09/29/21 16:00 Labs: Laboratory Results - last 24 hr 09/29/21 16:00: WBC 13.0 H, RBC 4.71, Hgb 13.1, Hct 40.4, MCV 85.8, MCH 27.8, MCHC 32.4, RDW Std Deviation 47.8 H, RDW Coeff of Hugo 15.5 H, Plt Count 157, MPV 11.2, Immature Gran % (Auto) 0.400, Neut % (Auto) 80.0 H, Lymph % (Auto) 9.7 L, [place] % (Auto) 9.5, Eos % (Auto) 0.2, Baso % (Auto) 0.2, Absolute Neuts (auto) 10.4 H, Absolute Lymphs (auto) 1.26, Nucleated RBC % 0 09/29/21 16:00: Sodium 146 H, Potassium 3.4 L, Chloride 118 H, Carbon Dioxide 24.0, Anion Gap 4 L, BUN 24 H, Creatinine 0.99, Estim Creat Clear Calc 66.44, Est GFR (MDRD) Af Amer 98, Est GFR (MDRD) Non-Af 81, BUN/Creatinine Ratio 24.3 H, Glucose 111 H, Calcium 8.3 L, Total Bilirubin 1.20 H, AST 22, ALT 57, Alkaline Phosphatase 72, Total Protein 5.9 L, Albumin 2.3 L, Globulin 3.6, Albumin/Globulin Ratio 0.6 L Micro: Microbiology 09/28/21 13:12 Interface Orders SARS-CoV-2 Antigen (Rapid) - Final Physical Exam Const alert and oriented x3 General Appearance: cooperative Neck full ROM Resp normal respiratory effort Effort and Inspection: able to speak in complete sentences Cardio regular rate GI GI Narrative: abdomen is soft and benign appropriate incisional tenderness incision is clean/dry/intact PIEDAD output is serosanguinous Assessment & Plan Assessment/Plan (1) Small bowel obstruction: PLAN: POD#2 s/p lysis of adhesions plan d/c to home, patient to follow up with me Friday for drain removal
--- NOTE | 2021-09-30 10:33 | PCM.DC.BLA ---
Discharge Summary Date of Admission: 09/28/21 Date of Discharge: 09/30/21 Summary: 65 y/o WM presents with bowel obstruction. Admitted on 09/28/2021 and observed over night for a few hours. With no improvement - increasing abdominal pain, worsening serum lactic acid levels, patient taken to OR. Found to have adhesion in the right lower quadrant with recurrence of right inguinal hernia. Adhesions taken down by blunt dissection and small bowel viable. Return of bowel function by POD#2 and patient started on liquid diet. He was discharge to home, to advance diet at home. Meaningful Use Info Meaningful Use Diagnoses (Choose all that apply): None applicable Discharge Plan Admission Admit Date/Time: 09/28/21 00:04 Primary Reason for Your Visit: small bowel obstruction Attending Provider: Mayank Taylor Primary Care Provider: Kenton Weathers Consulting Providers: Crys Smiley Instructions Additional Instructions / Restrictions: Recommended pain control regimen - May take 600 mg ibuprofen (Motrin) and then in 3-4 hours, may take 650 mg acetaminophen (Tylenol), then in 3-4 hours may take 600 mg ibuprofen, then in 3-4 hours may take 650 mg acetaminophen and so on for 2-3 days May take narcotic pain medication for pain that is not controlled by above and at night for comfort through the night Leave dressings in place May take shower, cover drain site with towel or other such covering to prevent from getting overly wet Do not soak - no tub baths/swimming Ice applied to areas of discomfort may help No lifting/pushing/pulling greater than 10 pounds for 6-8 weeks. Start with clear liquids at home - no carbonated beverages. Advance over the next 2-3 days to a regular diet as tolerated, drink plenty of fluids. Avoid carbonated beverages for about a week as this will cause abdominal bloating and thus discomfort after our surgery. Please call my office for an appointment to see me on Friday for drain removal Office number is If any questions, please call my office at and ask the hand spray operator for the general surgery nurses desk Discharge Orders/Prescriptions Prescriptions: New hydrocodone-acetaminophen 5-325 mg tablet 1 tab PO Q8H 5 Days Qty: 15 RF: 0 Continued metoprolol succinate 25 mg tablet extended release 24 hr 25 mg PO QDAY Qty: 30 RF: 12 quinapril 10 mg tablet 10 mg PO DAILY Qty: 30 RF: 12 amlodipine 10 mg tablet 10 mg PO DAILY Qty: 30 RF: 12 aspirin [Adult Low Dose Aspirin] 81 mg tablet,delayed release (DR/EC) 81 mg PO DAILY RF: 0 Referrals / Follow Up: Kenton Weathers MD [Primary Care Provider] - Within 2 Weeks Disposition Disposition (needs filled in before D/C Order can be placed): Home, Self Care
--- NOTE | 2021-09-30 11:24 | PCM.DC ---
Discharge Instructions Diet Discharge Diet: - (Liquids today, then advance to regular diet as tolerated) Activity Discharge Activity: Return to Normal Activity Weight Bearing Status: Full weight bearing Dressing / Incision Call your doctor if your incision/area has: Increased Pain/ Swelling, Increased Redness and Foul Smelling Discharge Follow Up Care Test Results: Test results from this visit will be discussed in further detail at your follow-up appointment, if applicable. Discharge Plan Admission Admit Date/Time: 09/28/21 00:04 Primary Reason for Your Visit: small bowel obstruction Attending Provider: Mayank Taylor Primary Care Provider: Kenton Weathers Consulting Providers: Crys Smiley Instructions Additional Instructions / Restrictions: Recommended pain control regimen - May take 600 mg ibuprofen (Motrin) and then in 3-4 hours, may take 650 mg acetaminophen (Tylenol), then in 3-4 hours may take 600 mg ibuprofen, then in 3-4 hours may take 650 mg acetaminophen and so on for 2-3 days May take narcotic pain medication for pain that is not controlled by above and at night for comfort through the night Leave dressings in place May take shower, cover drain site with towel or other such covering to prevent from getting overly wet Do not soak - no tub baths/swimming Ice applied to areas of discomfort may help No lifting/pushing/pulling greater than 10 pounds for 6-8 weeks. Start with clear liquids at home - no carbonated beverages. Advance over the next 2-3 days to a regular diet as tolerated, drink plenty of fluids. Avoid carbonated beverages for about a week as this will cause abdominal bloating and thus discomfort after our surgery. Please call my office for an appointment to see me on Friday for drain removal Office number is If any questions, please call my office at and ask the tobacco drying machine operator for the general surgery nurses desk Discharge Orders/Prescriptions Prescriptions: New hydrocodone-acetaminophen 5-325 mg tablet 1 tab PO Q8H 5 Days Qty: 15 RF: 0 Continued metoprolol succinate 25 mg tablet extended release 24 hr 25 mg PO QDAY Qty: 30 RF: 12 quinapril 10 mg tablet 10 mg PO DAILY Qty: 30 RF: 12 amlodipine 10 mg tablet 10 mg PO DAILY Qty: 30 RF: 12 aspirin [Adult Low Dose Aspirin] 81 mg tablet,delayed release (DR/EC) 81 mg PO DAILY RF: 0 Referrals / Follow Up: Kenton Weathers MD [Primary Care Provider] - Within 2 Weeks Disposition Disposition (needs filled in before D/C Order can be placed): Home, Self Care
--- NOTE | 2021-09-30 15:38 | PCM.DC.SUM ---
Providers Date of Admission: 09/28/21 Date of Discharge: 09/30/21 Primary Care Physician: Dr. Kenton Weathers MD Consultations 09/28/21 01:11 Consult: General Surgery Routine Consulting Provider: Crys Smiley Reason for Consult: SBO, enteritis EMERGENT Consult: No MD Notified: Yes Date Notified: 09/28/21 Time Notified: 00:05 Method of Notification: per ED. Reason For Visit: SBO, ENTERITIS Diagnosis Discharge Diagnosis (1) Small bowel obstruction: Status: Acute Code(s): K56.609 - Unspecified intestinal obstruction, unspecified as to partial versus complete obstruction Plan: 1. Small bowel obstruction due to adhesion in right lower quadrant of abdomen #2 coronary artery disease #3 essential hypertension #4 lactic acidosis secondary to small bowel obstruction #5 leukocytosis secondary to small bowel obstruction Medications at Discharge Home Medications amlodipine 10 mg tablet 10 mg PO DAILY #30 tab 08/12/19 metoprolol succinate 25 mg tablet,extended release 24 hr 25 mg PO QDAY #30 tab 08/12/19 quinapril 10 mg tablet 10 mg PO DAILY #30 tab 08/12/19 aspirin 81 mg tablet,delayed release 81 mg PO DAILY 01/26/21 hydrocodone-acetaminophen 1 tab PO Q8H 5 Days #15 tab 09/30/21 Hospital Course Operations - (Diagnostic laparoscopy, exploratory laparotomy, lysis of adhesions) Procedures None Summary of Care Provided Minutes Spent on Discharge: 32 Hospital Course: This 65-year-old white male was seen in the emergency room at [facility] with complaints of abdominal pain and belching, patient denied any fever, nausea, or vomiting. Work-up in the emergency room included a CBC which showed an elevated white blood cell count at 26,000, glucose was slightly elevated at 190, lactic acid was elevated at 3.1, CT scan of the abdomen and pelvis revealed what appeared to be a small bowel obstruction with distention and backup of fluid all the way to the stomach. General surgery was contacted and requested the hospitalist service admit the patient, NG tube was placed with removal of a great deal of fluid from the patient's stomach. Patient was admitted to PCU, he was seen and consultation by general surgery. A repeat CAT scan was performed on 09/28/2021 which showed persist small bowel obstruction with transition point in the terminal ileum. Patient was taken to surgery on that day and underwent a diagnostic laparoscopy with exploratory laparotomy and lysis of adhesions. Patient did well after surgery, there were no untoward events. On 09/30/2021, patient was seen and examined: On examination he appeared in good health and spirits. Vital signs as documented. Skin warm and dry and without overt rashes. Neck without JVD, neck was supple, trachea midline, thyroid was normal. Lungs clear bilaterally, normal air movement was noted. Heart exam notable for regular rhythm, normal sounds and absence of murmurs, rubs or gallops. Abdomen unremarkable and without evidence of organomegaly, masses, or abdominal aortic enlargement. Bowel sounds were decreased, abdomen is not distended. Extremities nonedematous, no cyanosis was noted, no clubbing was noted. Neuro: Cranial nerves II through XII are grossly intact, no focal motor deficits were noted, sensation to light touch and pinprick intact, motor exam 5/5 throughout. Psych: Patient is alert and oriented x3, he does not appear anxious or depressed, he does not appear agitated. Patient's NG tube was removed and he was discharged home in stable condition on 09/30/2021. Weight / BMI Weight Weight: 85.1 kg Body Mass Index (BMI) 30.7 ABG / Lab / Microbiology Data Result Diagrams: 09/29/21 16:00 09/29/21 16:00 Laboratory: Laboratory Results - last 24 hr 09/29/21 16:00: WBC 13.0 H, RBC 4.71, Hgb 13.1, Hct 40.4, MCV 85.8, MCH 27.8, MCHC 32.4, RDW Std Deviation 47.8 H, RDW Coeff of Hugo 15.5 H, Plt Count 157, MPV 11.2, Immature Gran % (Auto) 0.400, Neut % (Auto) 80.0 H, Lymph % (Auto) 9.7 L, Josephine % (Auto) 9.5, Eos % (Auto) 0.2, Baso % (Auto) 0.2, Absolute Neuts (auto) 10.4 H, Absolute Lymphs (auto) 1.26, Nucleated RBC % 0 09/29/21 16:00: Sodium 146 H, Potassium 3.4 L, Chloride 118 H, Carbon Dioxide 24.0, Anion Gap 4 L, BUN 24 H, Creatinine 0.99, Estim Creat Clear Calc 66.44, Est GFR (MDRD) Af Amer 98, Est GFR (MDRD) Non-Af 81, BUN/Creatinine Ratio 24.3 H, Glucose 111 H, Calcium 8.3 L, Total Bilirubin 1.20 H, AST 22, ALT 57, Alkaline Phosphatase 72, Total Protein 5.9 L, Albumin 2.3 L, Globulin 3.6, Albumin/Globulin Ratio 0.6 L Microbiology: Microbiology 09/28/21 13:12 Interface Orders SARS-CoV-2 Antigen (Rapid) - Final D/C Instructions Discharge Diet: - (Liquids today, then advance to regular diet as tolerated) Weight Bearing Status: Full weight bearing Call your doctor if your incision/area has: Increased Pain/ Swelling, Increased Redness and Foul Smelling Discharge Meaningful Use Info Meaningful Use Diagnoses (Choose all that apply): None applicable Discharge Plan Admission Admit Date/Time: 09/28/21 00:04 Primary Reason for Your Visit: small bowel obstruction Attending Provider: Mayank Taylor Primary Care Provider: Kenton Weathers Consulting Providers: Crys Smiley Instructions Additional Instructions / Restrictions: Recommended pain control regimen - May take 600 mg ibuprofen (Motrin) and then in 3-4 hours, may take 650 mg acetaminophen (Tylenol), then in 3-4 hours may take 600 mg ibuprofen, then in 3-4 hours may take 650 mg acetaminophen and so on for 2-3 days May take narcotic pain medication for pain that is not controlled by above and at night for comfort through the night Leave dressings in place May take shower, cover drain site with towel or other such covering to prevent from getting overly wet Do not soak - no tub baths/swimming Ice applied to areas of discomfort may help No lifting/pushing/pulling greater than 10 pounds for 6-8 weeks. Start with clear liquids at home - no carbonated beverages. Advance over the next 2-3 days to a regular diet as tolerated, drink plenty of fluids. Avoid carbonated beverages for about a week as this will cause abdominal bloating and thus discomfort after our surgery. Please call my office for an appointment to see me on Friday for drain removal Office number is If any questions, please call my office at and ask the pipe threading machine operator for the general surgery nurses desk Discharge Orders/Prescriptions Prescriptions: New hydrocodone-acetaminophen 5-325 mg tablet 1 tab PO Q8H 5 Days Qty: 15 RF: 0 Continued metoprolol succinate 25 mg tablet extended release 24 hr 25 mg PO QDAY Qty: 30 RF: 12 quinapril 10 mg tablet 10 mg PO DAILY Qty: 30 RF: 12 amlodipine 10 mg tablet 10 mg PO DAILY Qty: 30 RF: 12 aspirin [Adult Low Dose Aspirin] 81 mg tablet,delayed release (DR/EC) 81 mg PO DAILY RF: 0 Referrals / Follow Up: Kenton Weathers MD [Primary Care Provider] - Within 2 Weeks Disposition Disposition (needs filled in before D/C Order can be placed): Home, Self Care Charges/Coding Visit Charges Inpatient E&M: 29271 Disch Hosp
== END 2021-09-30 12:20 | disposition home or self-care (01) | DRG 337 ==
LOC: ED 23:53 → PCU 09-28 07:27
PROVIDERS: Surgery; Admitting Provider Family Medicine; Emergency Provider Emergency Medicine; PCP Family Medicine; Visit Provider Internal Medicine
PROC: 0DN80ZZ Release Small Intestine, Open Approach (ICD-10-PCS; CPT 44202; principal; 2021-09-28 13:10)
DX: K56.50 Intestinal adhesions [bands], unspecified as to partial versus complete obstruction (principal); E66.9 Obesity, unspecified; I10 Essential (primary) hypertension; I25.10 Atherosclerotic heart disease of native coronary artery without angina pectoris; E78.00 Pure hypercholesterolemia, unspecified; E78.5 Hyperlipidemia, unspecified; K52.9 Noninfective gastroenteritis and colitis, unspecified; K40.91 Unilateral inguinal hernia, without obstruction or gangrene, recurrent; E78.1 Pure hyperglyceridemia; R73.9 Hyperglycemia, unspecified; Z20.822 Contact with and (suspected) exposure to COVID-19; Z79.82 Long term (current) use of aspirin; Z79.899 Other long term (current) drug therapy; Z95.1 Presence of aortocoronary bypass graft; Z68.31 Body mass index [BMI] 31.0-31.9, adult
CPT/HCPCS: 36415; 74018; 74176; 74177; 80053; 81001; 83036; 83605; 85025; 87426; 93005; 99285; J7030; J7050; Q9967; A4216; J2405; J3490

== ENCOUNTER → 2021-12-14 | Outpatient (CLI) | payer OTHER, SELFPAY ==
--- NOTE | 2021-12-14 09:49 | STRESSREP ---
Stress Test Report Date: 12-14-2021 Procedure: Exercise tolerance test/imaging study Indications: CAD; CABG (2015) Consent: Per the patient Procedure: The patient exercised on a Vish protocol for 7 minutes completing Stage II and 1 minute of Stage III achieving a peak heart rate of 137 bpm (87% predicted maximal heart rate) with a peak blood pressure 210/90 mmHg and a peak MET capacity of 10 METs. The baseline ECG demonstrated normal sinus rhythm. The peak exercise ECG demonstrated somatic/motion artifact with no obvious ECG changes. There were no cardiac dysrhythmias pretest, during exercise, or recovery. The functional capacity was considered good. There was no complaint of chest discomfort during exercise or recovery. The examination was discontinued secondary to leg discomfort. Impression: 1. Technically adequate (percent predicted maximal heart rate greater than 85%) exercise tolerance test 2. Peak exercise ECG with somatic/motion artifact with no obvious ECG changes 3. There were no cardiac dysrhythmias pretest, during exercise, or recovery 4. Nuclear images pending Myocardial perfusion imaging study: Technique: The patient was injected with 14.8 mCi of technetium 99m Cardiolite and subsequently rest SPECT Cardiolite nuclear imaging was obtained in the horizontal long, vertical long, and short axis views. The patient exercised on a Vish protocol for 7 minutes completing Stage II and 1 minute of Stage III achieving a peak heart rate of 137 bpm (87% predicted maximal heart rate) with a peak blood pressure 210/90 mmHg and a peak MET capacity of 10 METs. The patient was injected with 44.5 mCi of technetium 99m Cardiolite and subsequently stress SPECT Cardiolite nuclear imaging was obtained in the horizontal long, vertical long, and short axis views. A gated Cardiolite study at peak stress was obtained. Interpretation: Rest and stress SPECT Cardiolite nuclear imaging status post realignment, normalization, and attenuation correction, demonstrates the appearance of relative uniform tracer uptake and myocardial perfusion appearing within normal limits. There is end systolic thickening and brightening. The gated Cardiolite study demonstrates myocardial thickening and inward wall motion. The reported LVEF is 63%. Impression: 1. Rest and stress SPECT Cardiolite nuclear imaging demonstrate relative uniform tracer uptake and myocardial perfusion appearing within normal limits. 2. The gated Cardiolite study reports an LVEF of 63%. This note was generated with INFIMET software. It may contain incorrect words, spelling, and punctuation that were not noted in checking the note before signing.
== END | disposition home or self-care (01) ==
LOC: CVS 06:43
PROVIDERS: PCP Family Medicine; Referring Provider Internal Medicine Cardiovascular Disease; Visit Provider Internal Medicine Cardiovascular Disease
DX: I25.10 Atherosclerotic heart disease of native coronary artery without angina pectoris (principal); I10 Essential (primary) hypertension; E78.00 Pure hypercholesterolemia, unspecified; Z95.1 Presence of aortocoronary bypass graft
CPT/HCPCS: 78452; 93017; A9500; A4216

== ENCOUNTER → 2022-03-22 | Outpatient (CLI) | payer OTHER, SELFPAY ==
[2022-03-22 17:32] LABS: Absolute Lymphocyte Count 2.02 X10^3/uL (0.83-4.51); Absolute Neutrophil Count 7.6 X10^3/uL (2.0-7.7); Basophil# 0.06 X10^3/uL; Basophil% 0.6 % (0-1); Eosinophil# 0.29 X10^3/uL; Eosinophils% 2.7 % (0-5); Hematocrit 46.1 % (40-54); Lymphocyte # 2.02 X10^3/ul (0.83-4.51); Lymphocyte % 18.6 % (19-41); Mean Corp Hgb Conc 32.5 g/dL (32-36); Mean Platelet Vol. 11.3 fl (6.2-12.0); Monocyte# 0.85 X10^3/uL; Monocyte% 7.8 % (0-10); NRBC Flagged by Analyzer 0 % (0-5); Neutrophil # 7.63 X10^3/uL (2.7-7.7); Platelet Count 214 K/mm3 (150-450); RBC Distribution Width SD 47.1 fl (35.1-43.9); Red Blood Count 5.36 M/mm3 (4.6-6.2); White Blood Count 10.9 K/mm3 (4.4-11.0)
[2022-03-22 17:53] LABS: ALB/GLOB Ratio 0.9 RATIO (0.9-2.4); AST(SGOT) 17 U/L (15-37); Alanine Aminotransfer ALT/SGPT 31 U/L (16-61); Albumin, Serum 3.3 g/dL (3.2-5.0); Alkaline Phosphatase 128 U/L (45-117); Anion Gap 9 (5-15); BUN 19 mg/dL (7-18); BUN/Creat Ratio 19.9 RATIO (10-20); Calcium,Total 8.8 mg/dL (8.5-10.1); Chloride 109 mmol/L (98-107); Creatinine, Serum 0.96 mg/dL (0.70-1.30); EST Glomerular Filtration Rate 84 mL/min (>60); Est Glom Filt Rate - Afr Amer 102 mL/min (>60); Globulin 3.8 g/dL (2.2-4.2); Glucose 119 mg/dL (74-106); PSA,Total- Diagnostic 4.48 ng/mL (0.0-4.0); Potassium 3.5 mmol/L (3.5-5.1); Protein, Total 7.1 g/dL (6.4-8.2); Sodium Level 143 mmol/L (136-145)
[2022-03-22 19:07] LABS: Microalbumin,Random Urine 14.3 mg/L (NO RANGE EST.); Microalbumin:Creatinine Ratio 7.6 mg/g CRE (<30 mg/g CRE)
== END | disposition home or self-care (01) ==
PROVIDERS: PCP Family Medicine; Referring Provider Family Medicine; Visit Provider Family Medicine
DX: I10 Essential (primary) hypertension (principal); I25.10 Atherosclerotic heart disease of native coronary artery without angina pectoris; R97.20 Elevated prostate specific antigen [PSA]
CPT/HCPCS: 36415; 80053; 82043; 82570; 84153; 85025

== ENCOUNTER → 2022-09-06 | Outpatient (CLI) | payer OTHER, SELFPAY ==
[2022-09-06 15:30] LABS: AST(SGOT) 27 U/L (15-37); Alanine Aminotransfer ALT/SGPT 40 U/L (16-61); Albumin, Serum 3.7 g/dL (3.2-5.0); Alkaline Phosphatase 132 U/L (45-117); Anion Gap 8 (5-15); BUN 17 mg/dL (7-18); BUN/Creat Ratio 19.4 RATIO (10-20); Calcium,Total 9.2 mg/dL (8.5-10.1); Chloride 111 mmol/L (98-107); Cholesterol 204 mg/dL (200); Creatinine, Serum 0.88 mg/dL (0.70-1.30); EST Glomerular Filtration Rate 93 mL/min (>60); Est Glom Filt Rate - Afr Amer 112 mL/min (>60); Globulin 3.8 g/dL (2.2-4.2); Glucose 83 mg/dL (74-106); High Density Lipoprotein 32 mg/dL; Microalbumin,Random Urine 61.8 mg/L (NO RANGE EST.); Microalbumin:Creatinine Ratio 19.9 mg/g CRE (<30 mg/g CRE); PSA,Total- Diagnostic 4.38 ng/mL (0.0-4.0); Potassium 3.4 mmol/L (3.5-5.1); Protein, Total 7.5 g/dL (6.4-8.2); Sodium Level 144 mmol/L (136-145); Triglycerides 400 mg/dL
== END | disposition home or self-care (01) ==
PROVIDERS: PCP Family Medicine; Referring Provider Family Medicine; Visit Provider Family Medicine
DX: Z00.00 Encounter for general adult medical examination without abnormal findings (principal); I25.10 Atherosclerotic heart disease of native coronary artery without angina pectoris; I10 Essential (primary) hypertension; R97.20 Elevated prostate specific antigen [PSA]
CPT/HCPCS: 36415; 80053; 80061; 82043; 82570; 84153

== ENCOUNTER → 2023-04-03 | Outpatient (CLI) | payer OTHER, SELFPAY ==
[2023-04-03 09:16] LABS: ALB/GLOB Ratio 0.9 RATIO (0.9-2.4); AST(SGOT) 21 U/L (15-37); Alanine Aminotransfer ALT/SGPT 44 U/L (16-61); Albumin, Serum 3.4 g/dL (3.2-5.0); Alkaline Phosphatase 149 U/L (45-117); Anion Gap 3 (5-15); BUN 16 mg/dL (7-18); BUN/Creat Ratio 18.2 RATIO (10-20); Calcium,Total 8.8 mg/dL (8.5-10.1); Chloride 110 mmol/L (98-107); Cholesterol 186 mg/dL (200); Creatinine, Serum 0.88 mg/dL (0.70-1.30); EST Glomerular Filtration Rate 92 mL/min (>60); Est Glom Filt Rate - Afr Amer 112 mL/min (>60); Globulin 3.9 g/dL (2.2-4.2); Glucose 100 mg/dL (74-106); High Density Lipoprotein 31 mg/dL; PSA,Total- Diagnostic 5.13 ng/mL (0.0-4.0); Potassium 3.4 mmol/L (3.5-5.1); Protein, Total 7.3 g/dL (6.4-8.2); Sodium Level 142 mmol/L (136-145); Triglycerides 341 mg/dL; Very Low Density Lipoprotein 68 mg/dL (5-40)
== END | disposition home or self-care (01) ==
LOC: LAB 08:07
PROVIDERS: PCP Family Medicine; Referring Provider Family Medicine; Visit Provider Family Medicine
DX: I25.10 Atherosclerotic heart disease of native coronary artery without angina pectoris (principal); R97.20 Elevated prostate specific antigen [PSA]
CPT/HCPCS: 36415; 80053; 80061; 84153

== ENCOUNTER → 2023-09-19 | Outpatient (CLI) | payer OTHER, SELFPAY ==
[2023-09-19 10:29] LABS: Cholesterol 166 mg/dL (200); High Density Lipoprotein 32 mg/dL; PSA,Total- Diagnostic 5.04 ng/mL (0.0-4.0); Triglycerides 141 mg/dL; Very Low Density Lipoprotein 28 mg/dL (5-40)
== END | disposition home or self-care (01) ==
PROVIDERS: PCP Family Medicine; Referring Provider Family Medicine; Visit Provider Family Medicine
DX: E78.5 Hyperlipidemia, unspecified (principal); R97.20 Elevated prostate specific antigen [PSA]
CPT/HCPCS: 36415; 80061; 84153

== ENCOUNTER → 2024-04-02 | Outpatient (CLI) | payer OTHER, SELFPAY ==
[2024-04-02 10:27] LABS: Absolute Lymphocyte Count 2.05 X10^3/uL (0.83-4.51); Absolute Neutrophil Count 7.1 X10^3/uL (2.0-7.7); Basophil# 0.08 X10^3/uL; Basophil% 0.8 % (0-1); Eosinophil# 0.27 X10^3/uL; Eosinophils% 2.7 % (0-5); Hematocrit 49.3 % (40-54); Hemoglobin 15.6 g/dL (13.0-16.5); Lymphocyte # 2.05 X10^3/ul (0.83-4.51); Lymphocyte % 20.2 % (19-41); Mean Corp Hgb Conc 31.6 g/dL (32-36); Mean Corpuscular Hgb 27.9 pg (27.0-32.0); Mean Platelet Vol. 12.1 fl (6.2-12.0); Monocyte% 5.9 % (0-10); NRBC Flagged by Analyzer 0 % (0-5); Neutrophil # 7.11 X10^3/uL (2.7-7.7); Platelet Count 193 K/mm3 (150-450); RBC Distribution Width CV 14.2 % (11.6-14.6); RBC Distribution Width SD 45.5 fl (35.1-43.9); White Blood Count 10.2 K/mm3 (4.4-11.0)
[2024-04-02 10:41] LABS: AST(SGOT) 18 U/L (15-37); Alanine Aminotransfer ALT/SGPT 31 U/L (16-61); Albumin, Serum 3.6 g/dL (3.2-5.0); Alkaline Phosphatase 144 U/L (45-117); Anion Gap 3 (5-15); BUN 15 mg/dL (7-18); BUN/Creat Ratio 18.4 RATIO (10-20); Calcium,Total 8.8 mg/dL (8.5-10.1); Chloride 110 mmol/L (98-107); Cholesterol 190 mg/dL (200); Creatinine, Serum 0.81 mg/dL (0.70-1.30); EST Glomerular Filtration Rate 101 mL/min (>60); Est Glom Filt Rate - Afr Amer 122 mL/min (>60); Globulin 3.6 g/dL (2.2-4.2); Glucose 98 mg/dL (74-106); Hemoglobin A1c 5.5 % (3.8-5.6); High Density Lipoprotein 33 mg/dL; PSA,Total- Diagnostic 5.45 ng/mL (0.0-4.0); Potassium 3.6 mmol/L (3.5-5.1); Protein, Total 7.2 g/dL (6.4-8.2); Sodium Level 142 mmol/L (136-145); Triglycerides 245 mg/dL; Very Low Density Lipoprotein 49 mg/dL (5-40)
[2024-04-02 12:16] LABS: Microalbumin,Random Urine 20.2 mg/L (NO RANGE EST.); Microalbumin:Creatinine Ratio 12.5 mg/g CRE (<30 mg/g CRE)
== END | disposition home or self-care (01) ==
LOC: MTLAB 08:38
PROVIDERS: PCP Family Medicine; Referring Provider Family Medicine; Visit Provider Family Medicine
DX: I25.10 Atherosclerotic heart disease of native coronary artery without angina pectoris (principal); I10 Essential (primary) hypertension; E66.811 Obesity, class 1
CPT/HCPCS: 36415; 80053; 80061; 82043; 82570; 83036; 84153; 85025

== ENCOUNTER → 2024-09-28 | Outpatient (CLI) | payer MEDICARE, OTHER, SELFPAY ==
[2024-09-28 12:59] LABS: Absolute Lymphocyte Count 1.97 X10^3/uL (0.83-4.51); Basophil# 0.05 X10^3/uL; Basophil% 0.6 % (0-1); Eosinophil# 0.18 X10^3/uL; Hematocrit 46.5 % (40-54); Lymphocyte # 1.97 X10^3/ul (0.83-4.51); Lymphocyte % 21.9 % (19-41); Mean Corp Hgb Conc 32.3 g/dL (32-36); Mean Corpuscular Hgb 27.6 pg (27.0-32.0); Mean Corpuscular Volume 85.5 fL (80-94); Mean Platelet Vol. 11.8 fl (6.2-12.0); Monocyte# 0.74 X10^3/uL; Monocyte% 8.2 % (0-10); NRBC Flagged by Analyzer 0 % (0-5); Neutrophil % 66.9 % (47-70); Platelet Count 192 K/mm3 (150-450); RBC Distribution Width CV 14.6 % (11.6-14.6); RBC Distribution Width SD 45.2 fl (35.1-43.9); Red Blood Count 5.44 M/mm3 (4.6-6.2)
[2024-09-28 13:29] LABS: BUN 15 mg/dL (4-19); Creatinine, Serum 0.73 mg/dL (0.70-1.20); Glucose 91 mg/dL (70-99)
[2024-09-28 13:30] LABS: ALB/GLOB Ratio 1.2 RATIO (0.9-2.4); AST(SGOT) 23 U/L (<=37); Alanine Aminotransfer ALT/SGPT 33 U/L (<=46); Albumin, Serum 3.9 g/dL (3.4-4.8); Alkaline Phosphatase 129 U/L (40-129); Anion Gap 12 (5-15); Calcium,Total 8.9 mg/dL (7.6-11.0); Carbon Dioxide 21.6 mmol/L (21.0-32.0); Chloride 109 mmol/L (98-108); Cholesterol 178 mg/dL (<=200); EST Glomerular Filtration Rate 101 (>60); Globulin 3.1 g/dL (2.2-4.2); High Density Lipoprotein 31 mg/dL; Low Density Lipoprotein Calc. 98 mg/dL; PSA,Total - Annual Screen 4.58 ng/mL (0.02-4.00); Potassium 3.5 mmol/L (3.3-5.1); Sodium Level 143 mmol/L (133-145); Total Bilirubin 0.41 mg/dL (0.00-1.30); Triglycerides 247 mg/dL; Very Low Density Lipoprotein 49 mg/dL (5-40)
[2024-09-28 16:02] LABS: Microalbumin:Creatinine Ratio 104.1 mg/g CRE
== END | disposition home or self-care (01) ==
LOC: MFPLAB 08:19
PROVIDERS: PCP Family Medicine; Referring Provider Family Medicine; Visit Provider Family Medicine
DX: I25.10 Atherosclerotic heart disease of native coronary artery without angina pectoris (principal); Z12.5 Encounter for screening for malignant neoplasm of prostate
CPT/HCPCS: 36415; 80053; 80061; 82043; 82570; 84153; 85025; G0103

== ENCOUNTER → 2025-03-22 | Outpatient (CLI) | payer MEDICARE, OTHER, SELFPAY ==
[2025-03-22 10:25] LABS: Hematocrit 46.4 % (40-54); Hemoglobin 15.6 g/dL (13.0-16.5); Immature Granulocytes Count 0.030 X10^3/uL (0.0-0.0); Mean Corp Hgb Conc 33.6 g/dL (32-36); Mean Corpuscular Volume 83.8 fL (80-94); Mean Platelet Vol. 11.4 fl (6.2-12.0); NRBC Flagged by Analyzer 0 % (0-5); Platelet Count 190 K/mm3 (150-450); RBC Distribution Width CV 15.0 % (11.6-14.6); RBC Distribution Width SD 45.1 fl (35.1-43.9); Red Blood Count 5.54 M/mm3 (4.6-6.2); White Blood Count 9.6 K/mm3 (4.4-11.0)
[2025-03-22 11:06] LABS: AST(SGOT) 20 U/L (<=37); Alanine Aminotransfer ALT/SGPT 22 U/L (<=46); Albumin, Serum 4.1 g/dL (3.4-4.8); Alkaline Phosphatase 121 U/L (40-129); Anion Gap 12 (5-15); BUN 15 mg/dL (4-19); BUN/Creat Ratio 18.2 RATIO (10-20); Calcium,Total 9.5 mg/dL (7.6-11.0); Carbon Dioxide 24.1 mmol/L (21.0-32.0); Chloride 109 mmol/L (98-108); Cholesterol 178 mg/dL (<=200); Globulin 2.9 g/dL (2.2-4.2); Glucose 99 mg/dL (70-99); Low Density Lipoprotein Calc. 104 mg/dL; Potassium 3.7 mmol/L (3.3-5.1); Triglycerides 214 mg/dL; Very Low Density Lipoprotein 43 mg/dL (5-40); cholesterol:hdl ratio screen 5.65
[2025-03-22 16:14] LABS: Creatinine, Urine (random) 228.00 mg/dL (39.00-259.00); Microalbumin,Random Urine 42.3 mg/L (<20 mg/L)
== END | disposition home or self-care (01) ==
LOC: MFPLAB 09:00
PROVIDERS: PCP Family Medicine; Referring Provider Family Medicine; Visit Provider Family Medicine
DX: I25.10 Atherosclerotic heart disease of native coronary artery without angina pectoris (principal); C43.9 Malignant melanoma of skin, unspecified
CPT/HCPCS: 36415; 80053; 80061; 82043; 82570; 85025

== ENCOUNTER → 2025-05-26 | Outpatient (CLI) | payer MEDICARE, OTHER, SELFPAY ==
--- NOTE | 2025-05-26 12:25 | CT_ITS ---
PROCEDURE: LIMITED CHEST CT CARDIAC ONLY 05/26/2025 REASON FOR EXAM: CAD Prior one-vessel bypass. TECHNIQUE: Procedure Code: [id number] Modality: CT Procedure: LIMITED CHEST CT CARDIAC ONLY CONTRAST: Isovue 370 VOLUME: 80 mL One or more dose reduction techniques were used (e.g., Automated exposure control, adjustment of the mA and/or kV according to patient size, use of iterative reconstruction technique). RADIATION DOSE SUMMARY: CTDlvol: 62 mGy DLP: 3017.33 mGycm COMPARISON: None FINDINGS: Coronary artery calcification. Prior midline sternotomy. Enlargement of the right ventricle. The visualized portions of the lungs are unremarkable. Fatty infiltration of the liver. Small hiatal hernia. CT/Limited Chest CT Cardiac Only IMPRESSION: Prior CABG. Coronary artery calcification. Fatty infiltration of the liver. Small hiatal hernia. Reading Location: [place] [id number]
[2025-05-26 13:10] VITALS: BP 171/91; PULSE 60; RESP 16; O2SAT 97; BMI 30.7
[2025-05-26 13:31] VITALS: PULSE 58
[2025-05-26] MEDS: Nitroglycerin SL (ED/IMG/CATH) 0.4 MG TABLET SL (13:31)
[2025-05-26 13:38] VITALS: BP 145/89; PULSE 60; RESP 16; O2SAT 99
--- NOTE | 2025-05-27 11:51 | CCTA.WCONT ---
CCTA w/Cont Coronary Arteries Date of Study:: 05/26/25 Coronary artery disease Coronary Calcium Scoring: High-resolution Computed Tomographic imaging of the chest was performed on [05/26/2025], with particular attention paid to the coronary arteries. Intravenous contrast agent was administered per protocol and images reconstructed and displayed. LEFT MAIN CORONARY ARTERY: This appears to be normal arising from the left coronary cusp and patent and bifurcates the left anterior descending artery and left circumflex artery [] LEFT ANTERIOR DESCENDING CORONARY ARTERY: Left anterior descending artery breast to be severely diseased in the proximal segment and then totally occluded [] LEFT CIRCUMFLEX CORONARY ARTERY: Left circumflex artery is a nondominant but medium size vessel. There are 2 obtuse marginal branches noted focal atherosclerotic plaquing and calcification is noted in the proximal and mid left circumflex artery with no high-grade stenosis present. [] RIGHT CORONARY ARTERY: Dominant vessel arising from the right coronary cusp. In the region of the acute marginal branch there is a soft plaque noted for approximately 30 to 50%. The rest of the vessel continues bifurcated posterior descending artery and posterolateral vessel with no high-grade stenosis present [] THORACIC AORTA: There is a left internal mammary artery noted of the subclavian vessel and anastomosing to the mid left anterior descending artery and is noted to be widely patent. [] Calcium Scoring Interpretation: Different methods to categorize the overall amount of coronary plaque. Overall amount CAC SIS Visual of coronary plaque P1 Mild -100 <2 1-2 vessels with mild amount of plaque P2 Moderate 101-300 3-4 1-2 vessels with moderate amount, 3 vessels with mild amount of plaque P3 Severe 301-999 5-7 3 vessels with moderate amount, 1 vessel with severe amount of plaque P4 Extensive >1000 >8 2-3 vessels with severe amount of plaque Conclusion: CT angiogram demonstrating a patent NIÑO to the LAD, mild calcification in the circumflex artery with nonocclusive plaque and moderate plaque disease noted in the right coronary artery.
== END | disposition home or self-care (01) ==
LOC: CT 12:23
PROVIDERS: PCP Family Medicine; Referring Provider Family Medicine; Visit Provider Family Medicine
DX: I25.10 Atherosclerotic heart disease of native coronary artery without angina pectoris (principal)
CPT/HCPCS: 75574; 76380; Q9967

== ENCOUNTER 2025-06-03 11:24 | Day surgery (SDC) | payer MEDICARE, OTHER, SELFPAY ==
--- NOTE | 2025-05-24 19:44 | PAT.ANE_ITS ---
Pre-Assessment Diagnosis/Proposed Procedure Planned Operative Procedure(s): OPEN VENTRAL HERNIA POSSIBLE MESH Anesthesia History Anesthesia History - public health internship: Anesthesia History - public health internship Hx Hospitalization No 05/24/25 11:08 Any Problems With Anesthesia No 05/24/25 11:08 Cholinesterase deficiency No 05/24/25 11:08 You/Your Family Experience No 05/24/25 11:08 fever (hyperthermia) with Relationship Recent Exposure to Contagious No 09/28/21 12:34 Disease Does patient have nerve No 05/24/25 11:08 stimulator Patient instructed to have device shut off --Does patient have Pacemaker or ICD? When Was Last Pacemaker Check QUESTION #4 FULL TEXT: You/Your Family Experience fever (hyperthermia) with Anesthesia Last Oral Intake Last Oral intake: Last Oral Intake NPO since Meds taken in AM with sips of water? Meds patient instructed to take am of surgery PONV PONV - public health internship: PONV - public health internship Female No 05/24/25 11:08 HX of Motion Sickness No 05/24/25 11:08 HX of N/V After Surgery No 05/24/25 11:08 Non-Smoker Yes 05/24/25 11:08 Duration of Surgery greater Yes 05/24/25 11:08 than 60 minutes Number of Risk Factors 2 05/24/25 11:08 PONV Score Moderate Risk 05/24/25 11:08 Height & Weight Height & Weight: Anesthesia: Height & Weight Height 5 ft 5 in 04/22/25 08:37 Respiratory Assessment Respiratory Assessment - public health internship: Respiratory Tract Infection Hx - public health internship Hx Respiratory Tract Infection No 05/24/25 11:08 STOP Sleep Apnea STOP Sleep Apnea - public health internship: STOP Sleep Apnea - public health internship Hx Hypertension Yes: CONTROLLED WITH MEDS 05/24/25 11:08 Hx Sleep Apnea No 05/24/25 11:08 CPAP BIPAP Do you snore loudly (louder Yes 05/24/25 11:08 than talking or can be heard Do you often feel tired/ No 05/24/25 11:08 fatigued/ sleepy during daytime? Has anyone observed you stop No 05/24/25 11:08 breathing during sleep? STOP Results Positive 05/24/25 11:08 QUESTION #5 FULL TEXT : Do you snore loudly (louder than talking or can be h eard through closed doors)? 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 Specify any problems Hx of Preganancy in last 3 N/A 05/24/25 11:08 Months Nurse Filling Out Transfusion [email or web address] 05/24/25 11:08 & Questions: Date: 05/24/25 05/24/25 11:08 Time: 11:10 05/24/25 11:08 Patient unable to answer at this time (ie. confused, unrespo /Reproduction History /Reproductive History - public health internship: /Reproductive Hx- public health internship Hx Now Gestational Age (in weeks): EDC: Hx Hx Para Hx Section SAB No 09/28/21 12:34 Does the father of the baby or his family experience fever w Father of the baby Malignant Hypertension history comment [facility] Medical History (Updated 05/24/25 @ 11:20 by Milton Calix) Cancer History of edema History of Holter monitoring History of stress test Cardiology follow-up encounter Umbilical hernia Kidney stones GERD (gastroesophageal reflux disease) Non-smoker Coronary artery disease Hypertension Pure hypercholesterolemia Essential hypertension Abnormal stress test 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 History of echocardiogram Atherosclerotic heart disease of [place] coronary artery without angina pectoris Edema Hypertriglyceridemia Abnormal CT scan, chest Chest pain Right inguinal hernia Screen for colon cancer Home Medications ?Medication ?Instructions ?Recorded ?Last Taken ?Type metoprolol tartrate 50 mg tablet 50 mg PO QHS 04/22/25 Unknown History ramipril 2.5 mg capsule 2.5 mg PO QHS 04/22/25 Unkno wn History amlodipine 10 mg tablet 10 mg PO QHS 05/24/25 Unknow n History Allergy/AdvReac Type Severity Reaction Status Date / Time No Known Allergies Allergy Verified 05/24/25 11:05 Family History Mother Lymphoma Father Leukemia Surgical History (Updated 05/24/25 @ 11:20 by Milton Calix) H/O exploratory laparotomy History of right inguinal hernia repair History of cholecystectomy History of left heart catheterization (LHC) Hx of CABG (~06/04/16) Social History Smoking Status: Never smoker alcohol intake: never substance use type: does not use caffeine: Yes Type: carbonated beverages and tea what type of physical activity do you participate in: none seatbelt use: always do you feel safe at home: Yes Audit: Pertinent Findings Pertinent Findings EKG Perinent findings: 09/27/2021. Normal sinus rhythm. LAD. Prolonged QT. Poor R wave progression. Stress test pertinent findings: 12/14/2021. EF is 63%. Rest and stress nuclear imaging demonstrate relatively uniform tracer uptake and myocardial perfusion appearing within normal limits. Consult pertinent findings: 11/30/2021. Dr. Coleman. 1. Atherosclerotic heart disease with [place] coronary artery without angina. Status post NIÑO to the LAD in 2016. Patient does not have any classic symptoms of ongoing angina. Will reevaluate with exercise stress test. (See above). 2. Hypertension-patient is to monitor blood pressures at home and report back. Recommendation Anesthesia Recommendation Anesthesia recommendation: OPTIMIZED for anesthesia
[2025-06-03] VITALS (9 sets, daily range): BP systolic 135–156; BP diastolic 83–93; PULSE 64–79; RESP 14–16; TEMP 36.1–36.9; O2SAT 92–100; BMI 31.5
--- NOTE | 2025-06-03 11:33 | PRE.ANES_ITS ---
ASA Classification* ASA Classification ASA Classification: 2 Assessment & Plan Anesthesia* Anesthesia Assessment Anesthesia Assessment: Discussed sedation and/or anesthesia options, risks, benefits, and alternatives with patient/parents/legal guardian/POA. Questions invited. The patient/parents/legal guardian/POA seems to understand and agrees to proceed with anesthesia plan. Reviewed the physical assessment, medical history, allergy history and patient home medications list prior to surgery/procedure/anesthetic and documented any changes. Performed airway and anesthesia risk assessments. Anesthesia Type Anesthesia Type: General Anesthesia Focused Assessment* Airway Assessment Mouth opens: >3 cm Mallampati Score: II Labs Anesthesia Preop lab: CBC WBC, (4.4-11.0) 9.6 K/mm3 03/22/25, 09: RBC, (4.6-6.2) 5.54 M/mm3 03/22/25, 09:01 Hgb, (13.0-16.5) 15.6 g/dL 03/22/25, 09: Hct, (40-54) 46.4 % 03/22/25, 09:01 Plt Count, (150-450) 190 K/mm3 03/22/25, 09:01 CHEMISTRY Potassium, (3.3-5.1) 3.7 mmol/L 03/22/25, 09:01 Sodium, (133-145) 145 mmol/L 03/22/25, 09:01 Magnesium, (1.6-2.6) 2.1 mg/dL 12/13/20, 04:54 Phosphorus, (2.5-4.9) 3.7 mg/dL 12/13/20, 04:54 BUN, (4-19) 15 mg/dL 03/22/25, 09:01 Creatinine, (0.70-1.20) 0.80 mg/dL 03/22/25, 09:01 Glucose, (70-99) 99 mg/dL 03/22/25, 09:01 TSH, (0.358-3.74) 1.62 uIU/mL 08/23/17, 06:20 COAG PT, (11.7-14.9) 12.6 SECONDS 11/22/16, 10:45 Pre-Assessment Diagnosis/Proposed Procedure Planned Operative Procedure(s): OPEN VENTRAL HERNIA POSSIBLE MESH Anesthesia History Anesthesia History - rooming house inspector: Anesthesia History - rooming house inspector Hx Hospitalization No 05/24/25 11:08 Any Problems With Anesthesia No 05/24/25 11:08 Cholinesterase deficiency No 05/24/25 11:08 You/Your Family Experience No 05/24/25 11:08 fever (hyperthermia) with Relationship Recent Exposure to Contagious No 09/28/21 12:34 Disease Does patient have nerve No 05/24/25 11:08 stimulator Patient instructed to have device shut off --Does patient have Pacemaker or ICD? When Was Last Pacemaker Check QUESTION #4 FULL TEXT: You/Your Family Experience fever (hyperthermia) with Anesthesia Last Oral Intake Last Oral intake: Last Oral Intake NPO since Meds taken in AM with sips of water? Meds patient instructed to take am of surgery PONV PONV - rooming house inspector: PONV - rooming house inspector Female No 05/24/25 11:08 HX of Motion Sickness No 05/24/25 11:08 HX of N/V After Surgery No 05/24/25 11:08 Non-Smoker Yes 05/24/25 11:08 Duration of Surgery greater Yes 05/24/25 11:08 than 60 minutes Number of Risk Factors 2 05/24/25 11:08 PONV Score Moderate Risk 05/24/25 11:08 Height & Weight Height & Weight: Anesthesia: Height & Weight Height 5 ft 5 in 06/02/25 14:46 Weight: 85.729 kg 06/02/25 08:04 Respiratory Assessment Respiratory Assessment - rooming house inspector: Respiratory Tract Infection Hx - rooming house inspector Hx Respiratory Tract Infection No 05/24/25 11:08 STOP Sleep Apnea STOP Sleep Apnea - rooming house inspector: STOP Sleep Apnea - rooming house inspector Hx Hypertension Yes: CONTROLLED WITH MEDS 05/24/25 11:08 Hx Sleep Apnea No 05/24/25 11:08 CPAP BIPAP Do you snore loudly (louder Yes 05/24/25 11:08 than talking or can be heard Do you often feel tired/ No 05/24/25 11:08 fatigued/ sleepy during daytime? Has anyone observed you stop No 05/24/25 11:08 breathing during sleep? STOP Results Positive 05/24/25 11:08 QUESTION #5 FULL TEXT : Do you snore loudly (louder than talking or can be heard through closed doors)? Tobacco Use History Tobacco Use History - rooming house inspector: Tobacco Use History - rooming house inspector Tobacco Use Smoking Status Never smoker 05/24/25 11:08 Hx Tobacco Use No 05/24/25 11:08 Years Smoking Packs Smoked per Day Smoking Cessation Date was within the last 15 years Hx Smoking Cessation Date Hx Smoking Cessation Counseling Hematologic Medial History Hematologic Hx - rooming house inspector: Hematologic Medical Hx - clinical documentation clerk Hx of Blood Transfusion No 05/24/25 11:08 Hx of Transfusion in last 3 No 05/24/25 11:08 Months Date of Last Transfusion (if within last 3 months) Ever experience any problems No 05/24/25 11:08 with transfusion(s)? Specify any problems Hx of Preganancy in last 3 N/A 05/24/25 11:08 Months Nurse Filling Out Transfusion [email or web address] 05/24/25 11:08 & Questions: Date: 05/24/25 05/24/25 11:08 Time: 11:10 05/24/25 11:08 Patient unable to answer at this time (ie. confused, unrespo /Reproduction History /Reproductive History - rooming house inspector: /Reproductive Hx- rooming house inspector Hx Now Gestational Age (in weeks): EDC: Hx Hx Para Hx Section SAB No 09/28/21 12:34 Does the father of the baby or his family experience fever w Father of the baby Malignant [facility] History Cancer History of edema History of Holter monitoring History of stress test Cardiology follow-up encounter Umbilical hernia Kidney stones GERD (gastroesophageal reflux disease) Non-smoker Coronary artery disease Hypertension Pure hypercholesterolemia Essential hypertension Abnormal stress test 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 History of echocardiogram Atherosclerotic heart disease of [place] coronary artery without angina pectoris Edema Hypertriglyceridemia Abnormal CT scan, chest Chest pain Right inguinal hernia Screen for colon cancer Home Medications ?Medication ?Instructions ?Recorded ?Last Taken ?Type metoprolol tartrate 50 mg tablet 50 mg PO QHS 04/22/25 Unknown History ramipril 2.5 mg capsule 2.5 mg PO QHS 04/22/25 Unkno wn History amlodipine 10 mg tablet 10 mg PO QHS 05/24/25 Unknow n History metoprolol succinate 25 mg 25 mg PO DAILY 05/26/25 Unk nown History tablet,extended release 24 hr (Toprol XL) Allergy/AdvReac Type Severity Reaction Status Date / Time No Known Allergies Allergy Verified 05/26/25 13:14 Family History Mother Lymphoma Father Leukemia Surgical History H/O exploratory laparotomy History of right inguinal hernia repair History of cholecystectomy History of left heart catheterization (LHC) Hx of CABG (~06/04/16) Social History Smoking Status: Never smoker alcohol intake: never substance use type: does not use caffeine: Yes Type: carbonated beverages and tea what type of physical activity do you participate in: none seatbelt use: always do you feel safe at home: Yes Review of Systems (Anesthesia) ROS Narrative System reviewed and no additional complaints, except as documented.
[2025-06-03] MEDS: Lactated Ringers 1,000 ML 15 ML IV (12:00)
--- NOTE | 2025-06-03 12:15 | HP.PCM_ITS ---
History and Physical Date of Admission: 06/03/25 Intake Vital Signs 11/30/2212:04 04/22/2508:37 Height 5 ft 5 in 5 ft 5 in Weight: 189 lb BMI 31.4 BP 125/74 H Blood Pressure Location Rt brachial Position Sitting Respiration 17 Pulse 79 Pulse Source Palpation Temp 97.2 F L Temp Source Temporal Pulse Oximetry (%) 99 Oxygen Delivery Method room air Intake Visit Reasons: UMBILICAL HERNIA Chief Complaint: umbilical hernia Is patient in pain?: Yes (pain at umbilical hernia only when bumped ) Allergies No Known Allergies Allergy (Verified 04/22/25 08:38) Medications ?Medication ?Instructions ?Recorded ?Confirmed ?Type amlodipine 10 mg tablet 10 mg PO DAILY #30 tabs 08/12/19 5 Rx aspirin 81 mg tablet,delayed 81 mg PO DAILY Check with primary 11/30/21 History release (Adult Low Dose Aspirin) doctor metoprolol tartrate 50 mg tablet 50 mg PO 04/22/25 04/22/25 History ramipril 2.5 mg capsule 2.5 mg PO QDAY 04/22/25 04/22/25 History Have you fallen in the past year?: No PFSH Medical History (Updated 04/22/25 @ 08:[address] 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 History of echocardiogram Atherosclerotic heart disease of [place] coronary artery without angina pectoris Edema Hypertriglyceridemia Abnormal CT scan, chest Chest pain Right inguinal hernia Screen for colon cancer Surgical History History of right inguinal hernia repair History of cholecystectomy History of left heart catheterization (LHC) Hx of CABG (~06/04/16) Family History Mother Lymphoma Father Leukemia Social History Smoking Status: Never smoker alcohol intake: never substance use type: does not use caffeine: Yes Type: carbonated beverages and tea what type of physical activity do you participate in: none seatbelt use: always do you feel safe at home: Yes HPI HPI HPI: Patient is a 69-year-old male here for ventral hernia. It is at the midline incision superior to the umbilicus. He reports that has been there for a long time. He is wearing a hernia belt currently to keep it in. He denies any nausea or vomiting or fevers or chills. ROS General General: No weight change, appetite, fatigue, colon cancer, breast cancer or weakness HEENT HEENT: No difficulty swallowing, eye injury, eye surgery, swollen glands or hoarseness Endo Endocrine: No thyroid disease, diabetes mellitus, thyroid cancer, Hair loss, heat intolerance or cold intolerance Skin Skin: No rash or changing moles Musc Musculoskeletal: No back problems, arthritis, rheumatoid arthritis, gout or joint pain Cardio Cardiovascular: Yes heart disease and high blood pressure; No murmur, pacemaker, atrial fibrillation, heart attack, heart stent, palpitations, shortness of breath with exertion or chest pain Psych Psychiatric: No depression, anxiety or hearing voices Resp Respiratory: No shortness of breath, No sleep apnea, No cough, No COPD, No asthma, No emphysema and No wheezing Gastro Gastrointestinal: No abdominal pain, No nausea or vomiting, No diarrhea, No constipation, No blood in stool, No acid reflux, No hemorrhoids, No ulcers, No gallbladder problem and No black,tarry stools [place] Hematologic: Yes blood thinners, No blood disorders, No bleeding, No anemia and No blood clots Additional Details: 81mg aspirin Neuro Neurologic: No numbness, No tingling and No weakness Exam Const General: cooperative Orientation: alert and oriented x3 HENMT Head: normal to inspection Neck Neck: normal visual inspection and full ROM Chest Chest palpation & inspection: normal inspection of the chest Resp Effort & Inspection: normal respiratory effort Auscultation: clear to auscultation bilaterally Cardio Rate: regular rate Rhythm: regular rhythm GI Inspection: non-distended Palpation: soft and nontender Skin General: no rashes or lesions noted Neuro General: patient alert and patient oriented x3 Extrem General: full ROM Psych Appearance: grossly normal Mental Status: mental status grossly normal Assessment and Plan Assessment and Plan (1) Ventral hernia: Status: Acute Plan: Patient has a small ventral incisional hernia at the midline superior to the umbilicus. It is easily reducible. I discussed repairing it with possible mesh in an open fashion. I discussed the procedure in detail as well as the risks including but not limited to bleeding, infection, injury other organs such as the bowel. Patient understands the risks and is 1 to proceed. I discussed mesh placement in detail in case the hernia is over a centimeter in size. The patient is having a heart cath at the beginning of May and we will schedule surgery for after that. Nithin Astorga MD Pager: [facility] [address] [place] [address], [address] [place] [phone] Office: I have examined the patient and the H&P has been reviewed. There are no clinical changes since date of exam.
[2025-06-03] MEDS: Midazolam 2 MG/2 ML Syringe IV (12:34)
[2025-06-03] MEDS: Cefazolin 1 GM/5 ML Vial 2 GM IV (12:35)
[2025-06-03] MEDS: Lidocaine 1% (5 ml sdv) 5 ML Vial 10 ML IV (12:40)
[2025-06-03] MEDS: fentaNYL 100 MCG/2 ML Ampul IV (12:40)
--- NOTE | 2025-06-03 13:00 | HERN_PTH ---
PATIENT: MAIRA BAGLEY LOC: [facility] U#:[id number] AGE/SX: 69/M ROOM: RE06/03/[address]: Dr. Nithin Astorga MD : 1955 BED: DIS: 06/03/2025 SPEC #: [id number] RECD: 06/03/25 15:33 STATUS: SHANON REJeny #: [id number] SAMANTHA: 06/03/25 13:[address]: Nithin Astorga DEPT: SURGICAL PATHOLOGY RECD BY: Andreea Valles ENTERED: 06/06/25 09:20 SP TYPE: Hernia OTHR DR: Dr. Kenton Weathers MD Tissues: HERNIA Procedures: Surgery Specimen Level II HEADER OPERATION: Hernia, open ventral repair with poss mesh PRE-OP DIAGNOSIS: Umbilical hernia TISSUE SUBMITTED: A- Ventral hernia sac MICROSCOPIC DIAGNOSIS A. Soft tissue, ventral hernia sac, excision: - Fibroadipose tissue partially covered by mesothelium, consistent with hernia sac. MICROSCOPIC DESCRIPTION Slides are reviewed. GROSS DESCRIPTION A. Received in formalin labeled with the patient's name and date of . Designated as ventral hernia sac is a 3.5 x 3.0 x 1.3 cm irregular portion of pink-vázquez to yellow and lobulated soft tissue. A customer support representative section is submitted in 1 cassette. AL [id number]
[2025-06-03] MEDS: Bupiv/Epi 0.25% 30 ML Vial (13:11)
--- NOTE | 2025-06-03 13:15 | OP.PCM_ITS ---
Operative Report (Standard) Operative Information Date of Procedure: 06/03/25 Pre-Operative Diagnosis: Incisional ventral hernia Post-Operative Diagnosis: Incisional ventral hernia 2 cm Surgery/Procedure Performed: Ventral hernia repair with mesh oven dauber: Yes Employee Communications Coordinator: Thalia Sunshine Tasks completed by first leveler: Opening & closing and Retracting Type of Anesthesia: General/Regional RN Documented Start/Stop Times: Operation Date: 06/03/25 13:00 Case Time Into Pre-Op 06/03/25 11:33 Out of Pre-Op 06/03/25 12:31 Anesthesia Start 06/03/25 12:34 Into Room 06/03/25 12:34 Procedure Start 06/03/25 12:51 Procedure End 06/03/25 13:12 Procedure Start Time: 12:51 Procedure Stop Time: 13:12 Select all DRAINS/GRAFTS/IMPLANTS that apply: Implanted device Implanted device details: Medium Ventralex ST mesh Estimated Blood Loss: 5 Specimen collected: Yes Description of specimen(s) removed: Hernia sac Description of surgery: Patient was brought back to the operating room and general anesthesia was induced. The abdomen was prepped and draped in usual sterile fashion. An incision was marked along the superior portion of his prior incision and then injected with local anesthetic. Incision was made with a scalpel and deepened to the subcutaneous tissue. Electrocautery was used to maintain hemostasis. The hernia sac was encountered and dissected free from its adhesions circumferentially. The hernia sac was entered and there was no bowel contained in the hernia. The hernia sac was resected. It was sent for pathology. The edges of the fascia were grasped and elevated. The underside of the fascia was cleared of scar tissue. Next a Ventralight ST mesh was placed into the abdomen and tacked to the anterior abdominal wall using 0 PDS suture. Next the fascia was closed in an interrupted fashion using 0 PDS suture. The subcutaneous tissue was irrigated and suctioned dry. The skin was closed with interrupted 3- 0 Vicryl sutures. Steri-Strips and bandages were applied. Patient tolerated the procedure well. Surgical Findings: Ventral hernia 2 cm Complications Complications: No Admit VTE Documentation VTE Mechan Device Prophylaxis: SCD's
--- NOTE | 2025-06-03 13:18 | DCINST_ITS ---
Discharge Instructions Procedure Hernia Diet Discharge Diet: Light diet - advance as tolerated Activity Discharge Activity: May Not Drive (for 2-3 days or while taking narcotic pain meds.) and May Shower (with the bandage in place 1-2 days after surgery.) Lifting Restrictions: 20 pounds for 4 weeks. Additional Activity Instructions:: Climbing stairs is fine, walking is encouraged. Sitting in bed may be uncomfortable. Sitting up using your lateral muscles (sitting up sideways) is usually more comfortable. Do not drive, work heavy equipment of sign legal documents for 24 hours. Pain medications may cause nausea, you should typically eat light foods as you take your pain medications. Pain medications may also cause constipation. If you have difficulty with this, discuss with your doctor. Alternate ibuprofen and Tylenol for pain control, oxycodone for breakthrough pain Dressing / Incision Call your doctor if your incision/area has: Continuous Slow Oozing, Sudden Increased Bleeding, Increased Pain/ Swelling, Increased Redness and Foul Smelling Discharge Call your doctor if you observe: Fever of 101 or Higher Suture Line Care: Avoid Pulling/Pushing and Avoid Pinching/Bending Remove Dressing in: 2 days (Remove clear bandages in 2 days, remove Steri-Strips in 7 to 10 days.) Cleanse incision/area with: Soap & Water Follow Up Care Please Follow Up With: Nithin Astorga MD When: Please call to schedule 2 week follow up appointment. [phone] Test Results: Test results from this visit will be discussed in further detail at your follow- up appointment, if applicable. Discharge Plan Admission Attending Provider: Nithin Astorga Primary Care Provider: Kenton Weathers Instructions Print Language: Korean Discharge Orders/Prescriptions Prescriptions: New oxycodone 5 mg Tablet 5 - 10 mg PO Q4H PRN PRN (Reason: Pain Score 4-10) 5 Days Qty: 14 0RF No Action ramipril 2.5 mg capsule 2.5 mg PO QHS metoprolol tartrate 50 mg tablet 50 mg PO QHS amlodipine 10 mg tablet 10 mg PO QHS metoprolol succinate [Toprol XL] 25 mg tablet extended release 24 hr 25 mg PO DAILY Referrals / Follow Up: Kenton Weathers MD [Primary Care Provider, Family Practice] Disposition Disposition (needs filled in before D/C Order can be placed): Home, Self Care
--- NOTE | 2025-06-03 13:28 | PCM.POST.ANE ---
Anesthesia: Postop Eval I Current Vital Signs Temperature: 97 F Pulse Rate: 76 Blood Pressure: 138/87 Respiratory Rate: 16 Pulse Ox: 94 Oxygen Delivery Method: Room Air Assessment Airway patent: Yes Spontaneous unlabored respirations: Yes Mental status: Awake and Calm nausea: No Vomiting: No Anesthesia Complication: No Fluid Hydration Crystalloid volume administer (ml): 600 Total IV fluid infused: 600 Progress Note Anesthesia document: Postop Eval 1 completed: Yes
--- NOTE | 2025-06-03 13:58 | POSTOPAN2_ITS ---
Anesthesia Postop Eval I Sum Postop Eval Completion status Anesthesia document: Postop Eval 1 completed: Yes Anesthesia Postop Eval I Summary Anesthesia Postop Eval I Summary: Anesthesia Postop Eval I: Assessment Summary Airway patent Yes 06/03/25 13:29 THORACIC MEDICINE [email or web address] Spontaneous unlabored Yes 06/03/25 13:29 THORACIC MEDICINE [email or web address] respirations Mental status Awake,Calm 06/03/25 13:29 THORACIC MEDICINE [email or web address] nausea No 06/03/25 13:29 THORACIC MEDICINE [email or web address] Vomiting No 06/03/25 13:29 THORACIC MEDICINE [email or web address] Anesthesia Postop Eval I: Fluid Summary Crystalloid volume administer 600 06/03/25 13:29 THORACIC MEDICINE [email or web address] (ml) Colloids volume administered ( ml) Blood Product volume administered (ml) Total IV fluid infused 600 06/03/25 13:29 THORACIC MEDICINE [email or web address] Anesthesia Postop Eval I: Summary Notes Anesthesia Complication No 06/03/25 13:29 THORACIC MEDICINE [email or web address] Anesthesia Complication Comment: Post-operative progress note Anesthesia: Postop Eval II Evaluation Mental status: Awake Pain Level: 1 nausea: No Vomiting: No
--- NOTE | 2025-06-03 13:58 | PCM.POSTANE2 ---
Anesthesia Postop Eval I Sum Postop Eval Completion status Anesthesia document: Postop Eval 1 completed: Yes Anesthesia Postop Eval I Summary Anesthesia Postop Eval I Summary: Anesthesia Postop Eval I: Assessment Summary Airway patent Yes 06/03/25 13:29 [email or web address] Spontaneous unlabored Yes 06/03/25 13:29 CELL [email or web address] respirations Mental status Awake,Calm 06/03/25 13:29 [email or web address] nausea No 06/03/25 13:29 CELL [email or web address] Vomiting No 06/03/25 13:29 [email or web address] Anesthesia Postop Eval I: Fluid Summary Crystalloid volume administer 600 06/03/25 13:29 [email or web address] (ml) Colloids volume administered ( ml) Blood Product volume administered (ml) Total IV fluid infused 600 06/03/25 13:29 [email or web address] Anesthesia Postop Eval I: Summary Notes Anesthesia Complication No 06/03/25 13:29 [email or web address] Anesthesia Complication Comment: Post-operative progress note Anesthesia: Postop Eval II Evaluation Mental status: Awake Pain Level: 1 nausea: No Vomiting: No
== END 2025-06-03 14:55 | disposition home or self-care (01) ==
LOC: SDC 11:26 → AC 11:26
PROVIDERS: PCP Family Medicine; Referring Provider Surgery; Visit Provider Surgery
PROC: (CPT 49591; principal; 2025-06-03 12:45)
DX: K43.2 Incisional hernia without obstruction or gangrene (principal); I10 Essential (primary) hypertension; Z79.899 Other long term (current) drug therapy
CPT/HCPCS: 49591; 00832; 88302; C1781; J2405